=== PATIENT | male | born 1955 | race Caucasian/White ===

== ENCOUNTER → 2016-06-10 | Outpatient (CLI) | payer BC ==
[2016-05-27 11:04] VITALS: BP 119/66
[~2016-06-10] MED LIST: AMOX1TAB11 PO; AMOX500C PO; ASPI81TA2 PO; ATOR20TA58 PO; FERR-26 PO; GEMF600T3 PO; HYDR-2666 PO; METF10002 PO; MULT-245 PO; NAPR220C PO; PIOG15TA2 PO
== END | disposition home or self-care (01) ==
LOC: PMGWOUND 10:59
PROVIDERS: ATTEND Preventive Medicine Undersea and Hyperbaric Medicine
DX: E11.622 Type 2 diabetes mellitus with other skin ulcer (principal); L97.211 Non-pressure chronic ulcer of right calf limited to breakdown of skin; E78.00 Pure hypercholesterolemia, unspecified; B95.62 Methicillin resistant Staphylococcus aureus infection as the cause of diseases classified elsewhere
CPT/HCPCS: 97597

== ENCOUNTER → 2016-06-17 | Outpatient (CLI) | payer BC ==
[2016-05-27 11:04] VITALS: BP 119/66
== END | disposition home or self-care (01) ==
LOC: PMGWOUND 11:12
PROVIDERS: ATTEND Preventive Medicine Undersea and Hyperbaric Medicine
DX: I70.238 Atherosclerosis of native arteries of right leg with ulceration of other part of lower leg (principal); E11.622 Type 2 diabetes mellitus with other skin ulcer; L97.211 Non-pressure chronic ulcer of right calf limited to breakdown of skin; E11.36 Type 2 diabetes mellitus with diabetic cataract; E78.00 Pure hypercholesterolemia, unspecified; Z86.14 Personal history of Methicillin resistant Staphylococcus aureus infection
CPT/HCPCS: 11042

== ENCOUNTER → 2016-06-24 | Outpatient (CLI) | payer BC ==
[2016-05-27 11:04] VITALS: BP 119/66
== END | disposition home or self-care (01) ==
LOC: PMGWOUND 11:00
PROVIDERS: ATTEND Preventive Medicine Undersea and Hyperbaric Medicine
DX: E11.622 Type 2 diabetes mellitus with other skin ulcer (principal); L97.811 Non-pressure chronic ulcer of other part of right lower leg limited to breakdown of skin; L97.211 Non-pressure chronic ulcer of right calf limited to breakdown of skin; E78.00 Pure hypercholesterolemia, unspecified; J45.909 Unspecified asthma, uncomplicated; E11.51 Type 2 diabetes mellitus with diabetic peripheral angiopathy without gangrene; Z86.14 Personal history of Methicillin resistant Staphylococcus aureus infection
CPT/HCPCS: 97597

== ENCOUNTER → 2016-07-01 | Outpatient (CLI) | payer BC ==
[2016-05-27 11:04] VITALS: BP 119/66
== END | disposition home or self-care (01) ==
LOC: PMGWOUND 10:57
PROVIDERS: ATTEND Preventive Medicine Undersea and Hyperbaric Medicine
DX: I70.238 Atherosclerosis of native arteries of right leg with ulceration of other part of lower leg (principal); E11.622 Type 2 diabetes mellitus with other skin ulcer; L97.212 Non-pressure chronic ulcer of right calf with fat layer exposed; E11.36 Type 2 diabetes mellitus with diabetic cataract; E78.00 Pure hypercholesterolemia, unspecified; Z86.14 Personal history of Methicillin resistant Staphylococcus aureus infection; Z72.89 Other problems related to lifestyle
CPT/HCPCS: 97597

== ENCOUNTER → 2016-07-08 | Outpatient (CLI) | payer BC ==
[2016-05-27 11:04] VITALS: BP 119/66
== END | disposition home or self-care (01) ==
LOC: PMGWOUND 09:57
PROVIDERS: ATTEND Preventive Medicine Undersea and Hyperbaric Medicine
DX: I70.238 Atherosclerosis of native arteries of right leg with ulceration of other part of lower leg (principal); E11.622 Type 2 diabetes mellitus with other skin ulcer; L97.811 Non-pressure chronic ulcer of other part of right lower leg limited to breakdown of skin; E11.36 Type 2 diabetes mellitus with diabetic cataract; E78.00 Pure hypercholesterolemia, unspecified; Z86.14 Personal history of Methicillin resistant Staphylococcus aureus infection; Z72.89 Other problems related to lifestyle
CPT/HCPCS: 97597

== ENCOUNTER → 2016-07-15 | Outpatient (CLI) | payer BC ==
[2016-05-27 11:04] VITALS: BP 119/66
== END | disposition home or self-care (01) ==
LOC: PMGWOUND 09:54
PROVIDERS: ATTEND Preventive Medicine Undersea and Hyperbaric Medicine
DX: I70.232 Atherosclerosis of native arteries of right leg with ulceration of calf (principal); E11.622 Type 2 diabetes mellitus with other skin ulcer; L97.212 Non-pressure chronic ulcer of right calf with fat layer exposed; E11.36 Type 2 diabetes mellitus with diabetic cataract; E78.00 Pure hypercholesterolemia, unspecified; Z86.73 Personal history of transient ischemic attack (TIA), and cerebral infarction without residual deficits; Z72.89 Other problems related to lifestyle
CPT/HCPCS: 97597

== ENCOUNTER → 2016-07-22 | Outpatient (CLI) | payer BC ==
[2016-05-27 11:04] VITALS: BP 119/66
[~2016-07-22] MED LIST changes: +METF-620 PO; -METF10002 PO
== END | disposition home or self-care (01) ==
LOC: PMGWOUND 10:22
PROVIDERS: ATTEND Preventive Medicine Undersea and Hyperbaric Medicine
DX: I70.238 Atherosclerosis of native arteries of right leg with ulceration of other part of lower leg (principal); E11.622 Type 2 diabetes mellitus with other skin ulcer; L97.811 Non-pressure chronic ulcer of other part of right lower leg limited to breakdown of skin; E11.36 Type 2 diabetes mellitus with diabetic cataract; E78.00 Pure hypercholesterolemia, unspecified; J45.909 Unspecified asthma, uncomplicated; Z86.73 Personal history of transient ischemic attack (TIA), and cerebral infarction without residual deficits; Z86.14 Personal history of Methicillin resistant Staphylococcus aureus infection; Z72.89 Other problems related to lifestyle
CPT/HCPCS: 97597

== ENCOUNTER → 2016-07-29 | Outpatient (CLI) | payer BC ==
[2016-05-27 11:04] VITALS: BP 119/66
== END | disposition home or self-care (01) ==
LOC: PMGWOUND 10:22
PROVIDERS: ATTEND Preventive Medicine Undersea and Hyperbaric Medicine
DX: E11.622 Type 2 diabetes mellitus with other skin ulcer (principal); L97.211 Non-pressure chronic ulcer of right calf limited to breakdown of skin; E78.00 Pure hypercholesterolemia, unspecified; J45.909 Unspecified asthma, uncomplicated; Z86.14 Personal history of Methicillin resistant Staphylococcus aureus infection; Z72.89 Other problems related to lifestyle; Z86.73 Personal history of transient ischemic attack (TIA), and cerebral infarction without residual deficits
CPT/HCPCS: 97597

== ENCOUNTER → 2016-08-05 | Outpatient (CLI) | payer BC ==
[2016-05-27 11:04] VITALS: BP 119/66
== END | disposition home or self-care (01) ==
LOC: PMGWOUND 10:27
PROVIDERS: ATTEND Preventive Medicine Undersea and Hyperbaric Medicine
DX: I70.238 Atherosclerosis of native arteries of right leg with ulceration of other part of lower leg (principal); E11.622 Type 2 diabetes mellitus with other skin ulcer; L97.811 Non-pressure chronic ulcer of other part of right lower leg limited to breakdown of skin; L97.211 Non-pressure chronic ulcer of right calf limited to breakdown of skin; E11.36 Type 2 diabetes mellitus with diabetic cataract; E78.00 Pure hypercholesterolemia, unspecified; Z86.14 Personal history of Methicillin resistant Staphylococcus aureus infection; Z72.89 Other problems related to lifestyle
CPT/HCPCS: 99214

== ENCOUNTER → 2016-08-12 | Outpatient (CLI) | payer BC ==
[2016-05-27 11:04] VITALS: BP 119/66
== END | disposition home or self-care (01) ==
LOC: PMGWOUND 09:59
PROVIDERS: ATTEND Preventive Medicine Undersea and Hyperbaric Medicine
DX: I70.232 Atherosclerosis of native arteries of right leg with ulceration of calf (principal); E11.622 Type 2 diabetes mellitus with other skin ulcer; L97.212 Non-pressure chronic ulcer of right calf with fat layer exposed; E11.36 Type 2 diabetes mellitus with diabetic cataract; E78.00 Pure hypercholesterolemia, unspecified; J45.909 Unspecified asthma, uncomplicated; Z72.89 Other problems related to lifestyle; Z86.14 Personal history of Methicillin resistant Staphylococcus aureus infection
CPT/HCPCS: 97597

== ENCOUNTER → 2016-08-19 | Outpatient (CLI) | payer BC ==
[2016-05-27 11:04] VITALS: BP 119/66
== END | disposition home or self-care (01) ==
LOC: PMGWOUND 10:24
PROVIDERS: ATTEND Preventive Medicine Undersea and Hyperbaric Medicine
DX: I70.238 Atherosclerosis of native arteries of right leg with ulceration of other part of lower leg (principal); E11.622 Type 2 diabetes mellitus with other skin ulcer; L97.212 Non-pressure chronic ulcer of right calf with fat layer exposed; E78.00 Pure hypercholesterolemia, unspecified; J45.909 Unspecified asthma, uncomplicated; E11.36 Type 2 diabetes mellitus with diabetic cataract; E11.51 Type 2 diabetes mellitus with diabetic peripheral angiopathy without gangrene; Z86.73 Personal history of transient ischemic attack (TIA), and cerebral infarction without residual deficits; Z86.14 Personal history of Methicillin resistant Staphylococcus aureus infection; Z72.89 Other problems related to lifestyle
CPT/HCPCS: 97597

== ENCOUNTER → 2016-08-26 | Outpatient (CLI) | payer BC ==
[2016-05-27 11:04] VITALS: BP 119/66
== END | disposition home or self-care (01) ==
LOC: PMGWOUND 09:49
PROVIDERS: ATTEND Preventive Medicine Undersea and Hyperbaric Medicine
DX: I70.232 Atherosclerosis of native arteries of right leg with ulceration of calf (principal); E11.622 Type 2 diabetes mellitus with other skin ulcer; L97.212 Non-pressure chronic ulcer of right calf with fat layer exposed; E78.00 Pure hypercholesterolemia, unspecified; E11.36 Type 2 diabetes mellitus with diabetic cataract; E11.51 Type 2 diabetes mellitus with diabetic peripheral angiopathy without gangrene; J45.909 Unspecified asthma, uncomplicated; Z72.89 Other problems related to lifestyle; Z86.14 Personal history of Methicillin resistant Staphylococcus aureus infection; Z86.73 Personal history of transient ischemic attack (TIA), and cerebral infarction without residual deficits
CPT/HCPCS: 11042

== ENCOUNTER → 2016-09-02 | Outpatient (CLI) | payer BC ==
[2016-05-27 11:04] VITALS: BP 119/66
[~2016-09-02] MED LIST changes: +ASPI-630 PO; -ASPI81TA2 PO; -HYDR-2666 PO; +HYDR-2758 PO
== END | disposition home or self-care (01) ==
LOC: PMGWOUND 09:58
PROVIDERS: ATTEND Preventive Medicine Undersea and Hyperbaric Medicine
DX: I70.238 Atherosclerosis of native arteries of right leg with ulceration of other part of lower leg (principal); E11.622 Type 2 diabetes mellitus with other skin ulcer; L97.212 Non-pressure chronic ulcer of right calf with fat layer exposed; E78.00 Pure hypercholesterolemia, unspecified; E11.36 Type 2 diabetes mellitus with diabetic cataract; E11.51 Type 2 diabetes mellitus with diabetic peripheral angiopathy without gangrene; J45.909 Unspecified asthma, uncomplicated; Z72.89 Other problems related to lifestyle; Z86.14 Personal history of Methicillin resistant Staphylococcus aureus infection; Z86.73 Personal history of transient ischemic attack (TIA), and cerebral infarction without residual deficits
CPT/HCPCS: 99214

== ENCOUNTER → 2016-09-09 | Outpatient (CLI) | payer BC ==
[2016-05-27 11:04] VITALS: BP 119/66
== END | disposition home or self-care (01) ==
LOC: PMGWOUND 10:24
PROVIDERS: ATTEND Preventive Medicine Undersea and Hyperbaric Medicine
DX: I70.238 Atherosclerosis of native arteries of right leg with ulceration of other part of lower leg (principal); E11.622 Type 2 diabetes mellitus with other skin ulcer; L97.811 Non-pressure chronic ulcer of other part of right lower leg limited to breakdown of skin; E78.00 Pure hypercholesterolemia, unspecified; E11.36 Type 2 diabetes mellitus with diabetic cataract; E11.51 Type 2 diabetes mellitus with diabetic peripheral angiopathy without gangrene; J45.909 Unspecified asthma, uncomplicated; Z86.14 Personal history of Methicillin resistant Staphylococcus aureus infection; Z86.73 Personal history of transient ischemic attack (TIA), and cerebral infarction without residual deficits; Z72.89 Other problems related to lifestyle
CPT/HCPCS: 99214

== ENCOUNTER → 2016-09-16 | Outpatient (CLI) | payer BC ==
[2016-05-27 11:04] VITALS: BP 119/66
== END | disposition home or self-care (01) ==
LOC: PMGWOUND 10:09
PROVIDERS: ATTEND Preventive Medicine Undersea and Hyperbaric Medicine
DX: I70.238 Atherosclerosis of native arteries of right leg with ulceration of other part of lower leg (principal); E11.622 Type 2 diabetes mellitus with other skin ulcer; L97.212 Non-pressure chronic ulcer of right calf with fat layer exposed; E78.00 Pure hypercholesterolemia, unspecified; E11.36 Type 2 diabetes mellitus with diabetic cataract; E11.51 Type 2 diabetes mellitus with diabetic peripheral angiopathy without gangrene; J45.909 Unspecified asthma, uncomplicated; Z86.14 Personal history of Methicillin resistant Staphylococcus aureus infection; Z86.73 Personal history of transient ischemic attack (TIA), and cerebral infarction without residual deficits; Z98.49 Cataract extraction status, unspecified eye; Z72.89 Other problems related to lifestyle
CPT/HCPCS: 15271; Q4101

== ENCOUNTER → 2016-09-23 | Outpatient (CLI) | payer MEDICARE, BC ==
[2016-05-27 11:04] VITALS: BP 119/66
== END | disposition home or self-care (01) ==
LOC: PMGWOUND 10:29
PROVIDERS: ATTEND Preventive Medicine Undersea and Hyperbaric Medicine
DX: I70.238 Atherosclerosis of native arteries of right leg with ulceration of other part of lower leg (principal); I87.311 Chronic venous hypertension (idiopathic) with ulcer of right lower extremity; E11.622 Type 2 diabetes mellitus with other skin ulcer; L97.212 Non-pressure chronic ulcer of right calf with fat layer exposed; E11.36 Type 2 diabetes mellitus with diabetic cataract; E11.51 Type 2 diabetes mellitus with diabetic peripheral angiopathy without gangrene; J45.909 Unspecified asthma, uncomplicated; Z86.14 Personal history of Methicillin resistant Staphylococcus aureus infection; Z86.73 Personal history of transient ischemic attack (TIA), and cerebral infarction without residual deficits; Z72.89 Other problems related to lifestyle
CPT/HCPCS: 15271; Q4101

== ENCOUNTER → 2016-09-30 | Outpatient (CLI) | payer MEDICARE, BC ==
[2016-05-27 11:04] VITALS: BP 119/66
== END | disposition home or self-care (01) ==
LOC: PMGWOUND 10:25
PROVIDERS: ATTEND Preventive Medicine Undersea and Hyperbaric Medicine
DX: I70.238 Atherosclerosis of native arteries of right leg with ulceration of other part of lower leg (principal); E11.622 Type 2 diabetes mellitus with other skin ulcer; I87.311 Chronic venous hypertension (idiopathic) with ulcer of right lower extremity; L97.212 Non-pressure chronic ulcer of right calf with fat layer exposed; E11.36 Type 2 diabetes mellitus with diabetic cataract; E11.51 Type 2 diabetes mellitus with diabetic peripheral angiopathy without gangrene; J45.909 Unspecified asthma, uncomplicated; E78.00 Pure hypercholesterolemia, unspecified; I25.10 Atherosclerotic heart disease of native coronary artery without angina pectoris; Z72.89 Other problems related to lifestyle; Z86.14 Personal history of Methicillin resistant Staphylococcus aureus infection; Z86.73 Personal history of transient ischemic attack (TIA), and cerebral infarction without residual deficits
CPT/HCPCS: 97597

== ENCOUNTER → 2016-10-07 | Outpatient (CLI) | payer MEDICARE, BC ==
[2016-05-27 11:04] VITALS: BP 119/66
== END | disposition home or self-care (01) ==
LOC: PMGWOUND 10:20
PROVIDERS: ATTEND Preventive Medicine Undersea and Hyperbaric Medicine
DX: I70.238 Atherosclerosis of native arteries of right leg with ulceration of other part of lower leg (principal); E11.622 Type 2 diabetes mellitus with other skin ulcer; I87.311 Chronic venous hypertension (idiopathic) with ulcer of right lower extremity; L97.212 Non-pressure chronic ulcer of right calf with fat layer exposed; E78.00 Pure hypercholesterolemia, unspecified; E11.36 Type 2 diabetes mellitus with diabetic cataract; E11.51 Type 2 diabetes mellitus with diabetic peripheral angiopathy without gangrene; J45.909 Unspecified asthma, uncomplicated; Z86.73 Personal history of transient ischemic attack (TIA), and cerebral infarction without residual deficits; Z86.14 Personal history of Methicillin resistant Staphylococcus aureus infection; Z72.89 Other problems related to lifestyle
CPT/HCPCS: 15271; Q4101

== ENCOUNTER → 2016-10-14 | Outpatient (CLI) | payer MEDICARE, BC ==
[2016-05-27 11:04] VITALS: BP 119/66
== END | disposition home or self-care (01) ==
LOC: PMGWOUND 10:25
PROVIDERS: ATTEND Preventive Medicine Undersea and Hyperbaric Medicine
DX: E11.622 Type 2 diabetes mellitus with other skin ulcer (principal); I87.311 Chronic venous hypertension (idiopathic) with ulcer of right lower extremity; L97.212 Non-pressure chronic ulcer of right calf with fat layer exposed; E11.36 Type 2 diabetes mellitus with diabetic cataract; E78.00 Pure hypercholesterolemia, unspecified; J45.909 Unspecified asthma, uncomplicated; Z72.89 Other problems related to lifestyle; E11.51 Type 2 diabetes mellitus with diabetic peripheral angiopathy without gangrene; Z86.14 Personal history of Methicillin resistant Staphylococcus aureus infection
CPT/HCPCS: 15271; 97597; Q4101

== ENCOUNTER → 2016-10-21 | Outpatient (CLI) | payer MEDICARE, BC ==
[2016-05-27 11:04] VITALS: BP 119/66
== END | disposition home or self-care (01) ==
LOC: PMGWOUND 10:21
PROVIDERS: ATTEND Preventive Medicine Undersea and Hyperbaric Medicine
DX: I87.311 Chronic venous hypertension (idiopathic) with ulcer of right lower extremity (principal); E11.622 Type 2 diabetes mellitus with other skin ulcer; L97.212 Non-pressure chronic ulcer of right calf with fat layer exposed; L97.811 Non-pressure chronic ulcer of other part of right lower leg limited to breakdown of skin; E78.00 Pure hypercholesterolemia, unspecified; E11.36 Type 2 diabetes mellitus with diabetic cataract; E11.51 Type 2 diabetes mellitus with diabetic peripheral angiopathy without gangrene; I25.10 Atherosclerotic heart disease of native coronary artery without angina pectoris; J45.909 Unspecified asthma, uncomplicated; Z86.14 Personal history of Methicillin resistant Staphylococcus aureus infection; Z86.73 Personal history of transient ischemic attack (TIA), and cerebral infarction without residual deficits; Z72.89 Other problems related to lifestyle
CPT/HCPCS: 99214

== ENCOUNTER → 2016-10-28 | Outpatient (CLI) | payer MEDICARE, BC ==
[2016-05-27 11:04] VITALS: BP 119/66
== END | disposition home or self-care (01) ==
LOC: PMGWOUND 10:39
PROVIDERS: ATTEND Preventive Medicine Undersea and Hyperbaric Medicine
DX: I70.238 Atherosclerosis of native arteries of right leg with ulceration of other part of lower leg (principal); L97.212 Non-pressure chronic ulcer of right calf with fat layer exposed; E11.622 Type 2 diabetes mellitus with other skin ulcer; S90.811D Abrasion, right foot, subsequent encounter; I25.10 Atherosclerotic heart disease of native coronary artery without angina pectoris; E78.00 Pure hypercholesterolemia, unspecified; E11.36 Type 2 diabetes mellitus with diabetic cataract; E11.51 Type 2 diabetes mellitus with diabetic peripheral angiopathy without gangrene; J45.909 Unspecified asthma, uncomplicated; Z86.73 Personal history of transient ischemic attack (TIA), and cerebral infarction without residual deficits; Z72.89 Other problems related to lifestyle; Z86.14 Personal history of Methicillin resistant Staphylococcus aureus infection; X58.XXXD Exposure to other specified factors, subsequent encounter
CPT/HCPCS: 99214

== ENCOUNTER → 2016-11-04 | Outpatient (CLI) | payer MEDICARE, BC ==
[2016-05-27 11:04] VITALS: BP 119/66
== END | disposition home or self-care (01) ==
LOC: PMGWOUND 10:22
PROVIDERS: ATTEND Preventive Medicine Undersea and Hyperbaric Medicine
DX: I87.311 Chronic venous hypertension (idiopathic) with ulcer of right lower extremity (principal); E11.622 Type 2 diabetes mellitus with other skin ulcer; L97.212 Non-pressure chronic ulcer of right calf with fat layer exposed; S90.811D Abrasion, right foot, subsequent encounter; E78.00 Pure hypercholesterolemia, unspecified; E11.51 Type 2 diabetes mellitus with diabetic peripheral angiopathy without gangrene; J45.909 Unspecified asthma, uncomplicated; Z72.89 Other problems related to lifestyle; Z86.14 Personal history of Methicillin resistant Staphylococcus aureus infection; X58.XXXD Exposure to other specified factors, subsequent encounter
CPT/HCPCS: 97597

== ENCOUNTER → 2016-11-11 | Outpatient (CLI) | payer MEDICARE, BC ==
[2016-05-27 11:04] VITALS: BP 119/66
== END | disposition home or self-care (01) ==
LOC: PMGWOUND 10:15
PROVIDERS: ATTEND Preventive Medicine Undersea and Hyperbaric Medicine
DX: I70.238 Atherosclerosis of native arteries of right leg with ulceration of other part of lower leg (principal); I87.311 Chronic venous hypertension (idiopathic) with ulcer of right lower extremity; E11.622 Type 2 diabetes mellitus with other skin ulcer; L97.212 Non-pressure chronic ulcer of right calf with fat layer exposed; S90.811D Abrasion, right foot, subsequent encounter; E78.00 Pure hypercholesterolemia, unspecified; E11.51 Type 2 diabetes mellitus with diabetic peripheral angiopathy without gangrene; J45.909 Unspecified asthma, uncomplicated; I25.10 Atherosclerotic heart disease of native coronary artery without angina pectoris; E11.36 Type 2 diabetes mellitus with diabetic cataract; Z72.89 Other problems related to lifestyle; Z86.73 Personal history of transient ischemic attack (TIA), and cerebral infarction without residual deficits; Z86.14 Personal history of Methicillin resistant Staphylococcus aureus infection; X58.XXXD Exposure to other specified factors, subsequent encounter
CPT/HCPCS: 97597

== ENCOUNTER → 2016-11-18 | Outpatient (CLI) | payer MEDICARE, BC ==
[2016-05-27 11:04] VITALS: BP 119/66
== END | disposition home or self-care (01) ==
LOC: PMGWOUND 10:25
PROVIDERS: ATTEND Preventive Medicine Undersea and Hyperbaric Medicine
DX: I87.311 Chronic venous hypertension (idiopathic) with ulcer of right lower extremity (principal); E11.622 Type 2 diabetes mellitus with other skin ulcer; I70.238 Atherosclerosis of native arteries of right leg with ulceration of other part of lower leg; L97.212 Non-pressure chronic ulcer of right calf with fat layer exposed; E78.00 Pure hypercholesterolemia, unspecified; E11.51 Type 2 diabetes mellitus with diabetic peripheral angiopathy without gangrene; I25.10 Atherosclerotic heart disease of native coronary artery without angina pectoris; J45.909 Unspecified asthma, uncomplicated; Z86.14 Personal history of Methicillin resistant Staphylococcus aureus infection; Z72.89 Other problems related to lifestyle; Z86.73 Personal history of transient ischemic attack (TIA), and cerebral infarction without residual deficits
CPT/HCPCS: 97597

== ENCOUNTER → 2016-11-25 | Outpatient (CLI) | payer MEDICARE, BC ==
[2016-05-27 11:04] VITALS: BP 119/66
== END | disposition home or self-care (01) ==
LOC: PMGWOUND 10:24
PROVIDERS: ATTEND Preventive Medicine Undersea and Hyperbaric Medicine
DX: I70.238 Atherosclerosis of native arteries of right leg with ulceration of other part of lower leg (principal); L97.212 Non-pressure chronic ulcer of right calf with fat layer exposed; E78.00 Pure hypercholesterolemia, unspecified; E11.36 Type 2 diabetes mellitus with diabetic cataract; J45.909 Unspecified asthma, uncomplicated; E11.51 Type 2 diabetes mellitus with diabetic peripheral angiopathy without gangrene; Z86.14 Personal history of Methicillin resistant Staphylococcus aureus infection; Z86.73 Personal history of transient ischemic attack (TIA), and cerebral infarction without residual deficits; Z72.89 Other problems related to lifestyle
CPT/HCPCS: 97597

== ENCOUNTER → 2016-12-02 | Outpatient (CLI) | payer MEDICARE, BC ==
[2016-05-27 11:04] VITALS: BP 119/66
== END | disposition home or self-care (01) ==
LOC: PMGWOUND 10:36
PROVIDERS: ATTEND Preventive Medicine Undersea and Hyperbaric Medicine
DX: I70.238 Atherosclerosis of native arteries of right leg with ulceration of other part of lower leg (principal); E11.622 Type 2 diabetes mellitus with other skin ulcer; L97.212 Non-pressure chronic ulcer of right calf with fat layer exposed; E78.00 Pure hypercholesterolemia, unspecified; E11.36 Type 2 diabetes mellitus with diabetic cataract; E11.51 Type 2 diabetes mellitus with diabetic peripheral angiopathy without gangrene; J45.909 Unspecified asthma, uncomplicated; I25.10 Atherosclerotic heart disease of native coronary artery without angina pectoris; Z86.14 Personal history of Methicillin resistant Staphylococcus aureus infection; Z86.73 Personal history of transient ischemic attack (TIA), and cerebral infarction without residual deficits; Z72.89 Other problems related to lifestyle
CPT/HCPCS: 97597

== ENCOUNTER → 2016-12-09 | Outpatient (CLI) | payer MEDICARE, BC ==
[2016-05-27 11:04] VITALS: BP 119/66
== END | disposition home or self-care (01) ==
LOC: PMGWOUND 10:25
PROVIDERS: ATTEND Preventive Medicine Undersea and Hyperbaric Medicine
DX: I70.238 Atherosclerosis of native arteries of right leg with ulceration of other part of lower leg (principal); E11.622 Type 2 diabetes mellitus with other skin ulcer; L97.212 Non-pressure chronic ulcer of right calf with fat layer exposed; E78.00 Pure hypercholesterolemia, unspecified; E11.36 Type 2 diabetes mellitus with diabetic cataract; E11.51 Type 2 diabetes mellitus with diabetic peripheral angiopathy without gangrene; J45.909 Unspecified asthma, uncomplicated; Z86.73 Personal history of transient ischemic attack (TIA), and cerebral infarction without residual deficits; Z86.14 Personal history of Methicillin resistant Staphylococcus aureus infection; Z72.89 Other problems related to lifestyle
CPT/HCPCS: 97597

== ENCOUNTER → 2016-12-16 | Outpatient (CLI) | payer MEDICARE, BC ==
[2016-05-27 11:04] VITALS: BP 119/66
== END | disposition home or self-care (01) ==
LOC: PMGWOUND 10:20
PROVIDERS: ATTEND Preventive Medicine Undersea and Hyperbaric Medicine
DX: I87.311 Chronic venous hypertension (idiopathic) with ulcer of right lower extremity (principal); E11.622 Type 2 diabetes mellitus with other skin ulcer; E11.36 Type 2 diabetes mellitus with diabetic cataract; E11.51 Type 2 diabetes mellitus with diabetic peripheral angiopathy without gangrene; I70.238 Atherosclerosis of native arteries of right leg with ulceration of other part of lower leg; L97.212 Non-pressure chronic ulcer of right calf with fat layer exposed; E78.00 Pure hypercholesterolemia, unspecified; Z86.14 Personal history of Methicillin resistant Staphylococcus aureus infection; Z72.89 Other problems related to lifestyle; Z86.73 Personal history of transient ischemic attack (TIA), and cerebral infarction without residual deficits
CPT/HCPCS: 97597

== ENCOUNTER → 2016-12-23 | Outpatient (CLI) | payer MEDICARE, BC ==
[2016-05-27 11:04] VITALS: BP 119/66
== END | disposition home or self-care (01) ==
LOC: PMGWOUND 10:25
PROVIDERS: ATTEND Preventive Medicine Undersea and Hyperbaric Medicine
DX: I70.238 Atherosclerosis of native arteries of right leg with ulceration of other part of lower leg (principal); E11.622 Type 2 diabetes mellitus with other skin ulcer; L97.212 Non-pressure chronic ulcer of right calf with fat layer exposed; E78.00 Pure hypercholesterolemia, unspecified; E11.36 Type 2 diabetes mellitus with diabetic cataract; E11.51 Type 2 diabetes mellitus with diabetic peripheral angiopathy without gangrene; J45.909 Unspecified asthma, uncomplicated; Z86.73 Personal history of transient ischemic attack (TIA), and cerebral infarction without residual deficits; Z86.14 Personal history of Methicillin resistant Staphylococcus aureus infection; Z72.89 Other problems related to lifestyle
CPT/HCPCS: 99214

== ENCOUNTER → 2016-12-30 | Outpatient (CLI) | payer MEDICARE, BC ==
[2016-05-27 11:04] VITALS: BP 119/66
== END | disposition home or self-care (01) ==
LOC: PMGWOUND 10:23
PROVIDERS: ATTEND Preventive Medicine Undersea and Hyperbaric Medicine
DX: E11.622 Type 2 diabetes mellitus with other skin ulcer (principal); I87.311 Chronic venous hypertension (idiopathic) with ulcer of right lower extremity; L97.212 Non-pressure chronic ulcer of right calf with fat layer exposed; E11.36 Type 2 diabetes mellitus with diabetic cataract; E78.00 Pure hypercholesterolemia, unspecified; E11.51 Type 2 diabetes mellitus with diabetic peripheral angiopathy without gangrene; J45.909 Unspecified asthma, uncomplicated; I25.10 Atherosclerotic heart disease of native coronary artery without angina pectoris; Z72.89 Other problems related to lifestyle
CPT/HCPCS: 97597

== ENCOUNTER → 2017-01-06 | Outpatient (CLI) | payer MEDICARE, BC ==
[2016-05-27 11:04] VITALS: BP 119/66
== END | disposition home or self-care (01) ==
LOC: PMGWOUND 10:24
PROVIDERS: ATTEND Emergency Medicine Undersea and Hyperbaric Medicine
DX: I70.238 Atherosclerosis of native arteries of right leg with ulceration of other part of lower leg (principal); I87.311 Chronic venous hypertension (idiopathic) with ulcer of right lower extremity; E11.622 Type 2 diabetes mellitus with other skin ulcer; L97.212 Non-pressure chronic ulcer of right calf with fat layer exposed; E78.00 Pure hypercholesterolemia, unspecified; E11.36 Type 2 diabetes mellitus with diabetic cataract; E11.51 Type 2 diabetes mellitus with diabetic peripheral angiopathy without gangrene; J45.909 Unspecified asthma, uncomplicated; Z86.73 Personal history of transient ischemic attack (TIA), and cerebral infarction without residual deficits; Z72.89 Other problems related to lifestyle
CPT/HCPCS: 99213

== ENCOUNTER 2018-07-12 15:03 | Inpatient (IN) | payer MEDICARE, BC ==
[~2018-07-12] VITALS: Ht 180.3 cm; Wt 83.9 kg
[~2018-07-12 15:03] MED LIST changes: -FERR-26 PO; +FERR325T14 PO; -GEMF600T3 PO; +GEMF600T8 PO; -HYDR-2758 PO; +HYDR-2761 PO; -METF-620 PO; +METF10007 PO; -NAPR220C PO; +NAPR220C62 PO; -PIOG15TA2 PO; +PIOG15TA63 PO
[2018-07-12] MEDS ORDERED: VANCOMYCIN PER PHARMACY MC STA (16:32)
[2018-07-12 16:45] LABS: BASO # 0.1 x10^3/uL (0.0-0.2); BASO % 1 % (0-3); EOS % 0 % (0-3); HEMATOCRIT 31.2 % (39.0-53.0); HEMOGLOBIN 10.3 g/dL (13.0-17.5); LYMPH # 1.4 x10^3/uL (1.0-4.8); LYMPH % 9 % (24-48); MEAN CORPUSCULAR HEMOGLOBIN 29 pg (25-35); MEAN CORPUSCULAR HGB CONC 33 g/dL (31-37); MEAN CORPUSCULAR VOLUME 88 fL (79-100); MONO # 1.1 x10^3/uL (0.0-1.1); MONO % 8 % (0-9); NEUT # 11.9 x10^3uL (1.8-7.7); NEUT % 82 % (31-73); PLATELET COUNT 459 x10^3/uL (140-400); RED BLOOD COUNT 3.52 x10^6/uL (4.30-5.70); RED CELL DISTRIBUTION WIDTH 13.4 % (11.5-14.5); WHITE BLOOD COUNT 14.5 x10^3/uL (4.0-11.0)
[2018-07-12] MEDS ORDERED: PIPERACILLIN/TAZOBACTAM 3.375 GM in IV NORMAL SALINE 50ML 50 ML IV ONE (16:45)
[2018-07-12] MEDS ORDERED: VANCOMYCIN 2 GM in IV NORMAL SALINE 500ML BAG 500 ML IV ONE (16:45)
[2018-07-12 16:52] LABS: CALCIUM 9.5 mg/dL (8.5-10.1); GFR 75.5; POTASSIUM 3.7 mmol/L (3.5-5.1)
[2018-07-12 16:58] LABS: ALBUMIN 3.2 g/dL (3.4-5.0); ALBUMIN/GLOBULIN RATIO 0.6 (1.0-1.7); TOTAL BILIRUBIN 0.4 mg/dL (0.2-1.0); TOTAL PROTEIN 8.6 g/dL (6.4-8.2)
--- NOTE | 2018-07-12 17:10 | RAD ---
FOOT RIGHT 3V Clinical Indication: ulceration on planter surface of right foot. foot is swollen red, hot to touch and seeping fluid. Comparison: None. Findings: Moderate joint space narrowing first MTP. No acute fracture or dislocation. The mineralization is normal. There is soft tissue ulceration along the plantar surface of the foot at the level of the first metatarsal head. No obvious bony erosion of the first metatarsal head. The medial sesamoid is not definitely seen and could be eroded. IMPRESSION: 1. Soft tissue ulcer along the plantar surface of the first metatarsal head. 2. Medial sesamoid is not definitely seen and could be eroded. 3. Suggest MRI for further evaluation. Electronically signed by: Aime Walker MD (07/12/2018 5:07 PM) [id number]
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
[2018-07-12] MEDS ORDERED: IV NORMAL SALINE 1000ML BAG 1,000 ML IV ONE (17:15)
[2018-07-12 19:00] VITALS: BP 123/65
[2018-07-12] MEDS ORDERED: MULT1CAP12 PO (19:56)
[2018-07-12] MEDS ORDERED: DEXTROSE 50% 25 GM / 50ML DISP.SYRIN. IV PRN (20:15)
[2018-07-12] MEDS ORDERED: PIP/TAZO PER PHARMACY MC PRN (20:15)
[2018-07-12] MEDS: GEMFIBROZIL 600 MG TABLET. PO SCH (20:25)
[2018-07-12] MEDS: ATORVASTATIN CALCIUM 20 MG TABLET PO SCH (20:25)
[2018-07-12] MEDS: INSULIN LISPRO 300 UNITS/3 ML INSULN.PEN. SQ SCH (21:00)
[2018-07-12 23:00] VITALS: BP 98/46
[2018-07-12] MEDS: HYDROcodone/APAP 5/325MG 1 TAB TABLET PO PRN (23:18)
[2018-07-13] MEDS: PIPERACILLIN/TAZOBACTAM 3.375 GM in IV NORMAL SALINE 50ML 50 ML IV SCH ×5 (00:04→20:25)
[2018-07-13 03:00] VITALS: BP 111/64
[2018-07-13 07:00] VITALS: BP 100/61
[2018-07-13] MEDS: INSULIN LISPRO 300 UNITS/3 ML INSULN.PEN. SQ SCH ×4 (07:30→20:22)
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
[2018-07-13 08:38] LABS: BASO # 0.1 x10^3/uL (0.0-0.2); BASO % 1 % (0-3); EOS # 0.2 x10^3/uL (0.0-0.7); EOS % 2 % (0-3); HEMATOCRIT 28.1 % (39.0-53.0); HEMOGLOBIN 9.7 g/dL (13.0-17.5); LYMPH # 1.8 x10^3/uL (1.0-4.8); LYMPH % 17 % (24-48); MEAN CORPUSCULAR HEMOGLOBIN 31 pg (25-35); MEAN CORPUSCULAR HGB CONC 35 g/dL (31-37); MEAN CORPUSCULAR VOLUME 88 fL (79-100); MONO % 10 % (0-9); NEUT # 7.2 x10^3uL (1.8-7.7); NEUT % 71 % (31-73); PLATELET COUNT 349 x10^3/uL (140-400); RED BLOOD COUNT 3.19 x10^6/uL (4.30-5.70); RED CELL DISTRIBUTION WIDTH 13.3 % (11.5-14.5); WHITE BLOOD COUNT 10.2 x10^3/uL (4.0-11.0)
[2018-07-13] MEDS: GEMFIBROZIL 600 MG TABLET. PO SCH ×2 (09:57→20:25)
[2018-07-13] MEDS: metFORMIN 500 MG TABLET PO SCH ×2 (09:57→17:33)
[2018-07-13] MEDS: PIOGLITAZONE 15 MG TABLET. PO SCH (09:57)
[2018-07-13] MEDS: FERROUS SULFATE 325 MG TABLET. PO SCH (09:58)
[2018-07-13] MEDS: MULTIVITAMIN with MINERAL TABLET. PO SCH (09:58)
[2018-07-13] MEDS: ASPIRIN CHEWABLE 81 MG TABLET. PO SCH (09:58)
[2018-07-13] MEDS: HYDROcodone/APAP 5/325MG 1 TAB TABLET PO PRN (10:07)
--- NOTE | 2018-07-13 10:18 | NUR ---
IP: Pt has an old hx of + mrsa in breast wound in 2008. Current screen and wound cultures are pending. Pt to be in contact precautions until results verified.
[2018-07-13 10:42] VITALS: BP 125/64
--- NOTE | 2018-07-13 12:02 | RAD ---
Right lower extremity arterial duplex ultrasound study without comparison for right leg diabetic foot ulcer. TECHNIQUE AND FINDINGS: Real-time grayscale and color and spectral Doppler evaluation of the arteries of right lower extremity is performed. The common femoral, proximal and mid superficial femoral, and deep femoral arteries demonstrate triphasic flow with only mild multifocal atherosclerosis and no hemodynamically significant stenoses. At the level of the distal SFA, there is abrupt comparison to monophasic flow which persists throughout the remainder of the runoff. There are areas of elevated velocity within the distal SFA and popliteal artery, though these do not reach threshold criteria for hemodynamically significant stenosis. The posterior tibial artery, peroneal artery, anterior tibial artery, and dorsalis pedis arteries all demonstrate monophasic flow with no focal velocity elevations. There is markedly reduced velocity within the anterior tibial artery. IMPRESSION: 1. Transition to monophasic flow at the distal SFA, and involving the runoff vessels suggesting one or more areas of hemodynamically significant stenosis below the distal SFA on the right. Further evaluation with direct angiography is recommended. Findings were discussed with Dr. Houston immediately upon interpretation of the examination. Electronically signed by: Toby Hodgson MD (07/13/2018 12:00 PM) [id number]
[2018-07-13 15:00] VITALS: BP 113/66
[2018-07-13] MEDS: VANCOMYCIN PER PHARMACY MC PRN (15:05)
[2018-07-13] MEDS ORDERED: GADOBUTROL 7.5 MMOL/7.5 ML VIAL IV ONE (15:30)
--- NOTE | 2018-07-13 15:30 | NUR ---
Wound Care Pt seen for wound care consultation, [facility] R leg wound which was being treated for well over a year in [id number] in the wound clinic. Pt's R foot wound assessed with Dr. Hernandez at bedside. R plantar foot ulcer appears deep, with odorous, purulent drainage pouring out when pressure is applied to dorsal aspect of foot. Able to probe to bone with cotton applicator, reddish purple petechiae and edema present over majority of forefoot, pedal pulse is palpable. Wound cleaned with saline, culture obtained from wound, then packed with Aquacel AG and covered with ABD and kerlix. Pt being transferred to MRI at this time, no other wounds noted on skin inspection. Will f/u with pt after Vascular surgery sees pt.
[2018-07-13] MEDS: VANCOMYCIN 1.25 GM in IV NORMAL SALINE 250ML 250 ML IV SCH (16:13)
[2018-07-13] MEDS ORDERED: VANCOMYCIN 1 GM in IV NORMAL SALINE 250ML 250 ML IV STA (17:09)
[2018-07-13] MEDS ORDERED: PIPERACILLIN/TAZOBACTAM 3.375 GM in IV NORMAL SALINE 50ML 50 ML IV STA (17:09)
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
--- NOTE | 2018-07-13 17:23 | PDOC ---
Provider Note Provider Note Vascular Surgery Consult dictated 62 year old male with a severe right foot diabetic infection admitted to the hospital yesterday. Vascular surgery consulted this afternoon to evaluate his foot. His right foot has an open wound on the plantar surface of the foot over the first metatarsal head region with necrotic tissue, draining purulent fluid and associated cellulitis of the foot. He has PVD by duplex however has a palpable PT pulse in the foot. Will proceed with surgery on his right foot with debridement and possible open 1st toe/metatarsal head amputation tomorrow. If signs of poor circulation may consider an angiogram during hospitalization. On IV antibiotics and ID consulted. ESTEFANY HOPPER MD Jul 13, 2018 17:23
[2018-07-13] MEDS ORDERED: IV NORMAL SALINE 1000ML BAG 1,000 ML IV SCH (18:00)
[2018-07-13 18:58] VITALS: BP 115/60
--- NOTE | 2018-07-13 19:31 | NUR ---
Medication administration: Vancomycin started late d/t loss of IV access, zosyn dose (1800) delayed.
--- NOTE | 2018-07-13 19:32 | NUR ---
Dr. Vaughn requesting that MRI be read prior to I&D procedure 07/14 at 0730. Notified Jovanna SUE nursing customer solutions supervisor, who discovered that radiology's computers are down and there are not any radiologists present to interpret films at this time.
[2018-07-13] MEDS: ATORVASTATIN CALCIUM 20 MG TABLET PO SCH (20:25)
[2018-07-13 23:00] VITALS: BP 113/59
[2018-07-13 23:08] LABS: HEMOGLOBIN A1C 7.1 % (4.8-5.6)
--- NOTE | 2018-07-13 23:29 | RAD ---
MRI of the right foot with and without contrast HISTORY: Osteomyelitis with a nonhealing ulcer on the plantar surface. Multiple sagittal imaging reveals performed before and after the administration of 9 mm IV gadolinium contrast. FINDINGS: There is marked bony edema throughout the first metatarsal and the proximal phalanx of the great toe. This has high signal on STIR and intermediate to low signal on T1 and significant enhancement. There is a peripherally enhancing fluid collection in and around the first metatarsal phalangeal joint and over the dorsal surface of the joint extending to the skin. The remaining visualized osseous structures have normal marrow signal. There is diffuse soft tissue edema and enhancement. There is thickening of the flexor tendon of the great toe. IMPRESSION: 1. Septic joint involving the first metatarsal phalangeal joint. 2. Osteomyelitis throughout the first metatarsal and the proximal phalanx of the great toe. 3. Fluid collection extending the skin with surrounding enhancement is consistent with a 13 mm x 12 mm abscess. 4. Tenovitis involving the first flexor tendon. 5. Diffuse soft tissue edema likely cellulitis. Electronically signed by: Amrik Valdez III, MD (07/13/2018 11:26 PM) [facility]
[2018-07-14] VITALS (9 sets, daily range): BP systolic 105–139; BP diastolic 53–72
[2018-07-14] MEDS: PIPERACILLIN/TAZOBACTAM 3.375 GM in IV NORMAL SALINE 50ML 50 ML IV SCH ×4 (00:53→19:06)
[2018-07-14] MEDS: VANCOMYCIN 1.25 GM in IV NORMAL SALINE 250ML 250 ML IV SCH ×2 (03:55→16:56)
[2018-07-14 04:21] LABS: BASO # 0.1 x10^3/uL (0.0-0.2); BASO % 1 % (0-3); EOS # 0.3 x10^3/uL (0.0-0.7); EOS % 3 % (0-3); HEMATOCRIT 28.5 % (39.0-53.0); HEMOGLOBIN 9.8 g/dL (13.0-17.5); LYMPH % 20 % (24-48); MEAN CORPUSCULAR HEMOGLOBIN 30 pg (25-35); MEAN CORPUSCULAR HGB CONC 35 g/dL (31-37); MEAN CORPUSCULAR VOLUME 87 fL (79-100); MONO % 10 % (0-9); NEUT # 6.6 x10^3uL (1.8-7.7); NEUT % 67 % (31-73); PLATELET COUNT 399 x10^3/uL (140-400); RED BLOOD COUNT 3.26 x10^6/uL (4.30-5.70); RED CELL DISTRIBUTION WIDTH 13.6 % (11.5-14.5); WHITE BLOOD COUNT 9.9 x10^3/uL (4.0-11.0)
[2018-07-14 04:28] LABS: PROTHROMBIN TIME PATIENT 14.5 SEC (11.7-14.0)
[2018-07-14 04:44] LABS: CALCIUM 9.2 mg/dL (8.5-10.1); CREATININE 0.7 mg/dL (0.7-1.3); GFR 113.9; POTASSIUM 3.8 mmol/L (3.5-5.1)
[2018-07-14] MEDS ORDERED: PROCHLORPERAZINE 10 MG/2 ML VIAL. IV PRN (07:00)
[2018-07-14] MEDS ORDERED: IV RINGERS,LACTATED 1000ML 1,000 ML IV SCH (07:00)
[2018-07-14] MEDS ORDERED: fentaNYL PF VIAL 100 MCG/2 ML VIAL IV PRN ×2 (07:00)
[2018-07-14] MEDS ORDERED: HYDROmorphone 2 MG/ML VIAL IV PRN (07:00)
[2018-07-14] MEDS ORDERED: LIDOCAINE 1% PF 2 ML VIAL. ID PRN (07:00)
[2018-07-14] MEDS ORDERED: ONDANSETRON PF 4 MG/2 ML VIAL. IV PRN (07:00)
[2018-07-14] MEDS ORDERED: MORPHINE SULFATE 2 MG/ML VIAL. IV PRN (07:00)
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
[2018-07-14] MEDS ORDERED: ONDANSETRON PF 4 MG/2 ML VIAL. ONE (07:02)
[2018-07-14] MEDS ORDERED: FAMOTIDINE 20 MG/2 ML VIAL ONE (07:02)
[2018-07-14] MEDS ORDERED: PROPOFOL 20 ML IV ONE (07:02)
[2018-07-14] MEDS ORDERED: LIDOCAINE 2% PF 5 ML VIAL. ONE (07:02)
[2018-07-14] MEDS ORDERED: fentaNYL PF VIAL 100 MCG/2 ML VIAL ONE (07:03)
[2018-07-14] MEDS ORDERED: MIDAZOLAM HCL/PF 2 MG/2 ML VIAL. ONE (07:03)
[2018-07-14] MEDS ORDERED: DEXAMETHASONE SOD PHOS 4 MG/ML VIAL ONE (07:04)
[2018-07-14] MEDS: INSULIN LISPRO 300 UNITS/3 ML INSULN.PEN. SQ SCH ×4 (07:30→21:00)
[2018-07-14] MEDS ORDERED: SEVOFLURANE 31 TO 60 MINUTES. IH ONE (08:15)
--- NOTE | 2018-07-14 08:17 | PDOC4 ---
OPERATIVE NOTE: Op note dictated Dx: septic right metatarsal phalangeal joint DM with vascular disease, neurotrophic ulcer over 1st metatarsal head Op: right great toe amputation with metatarsal head Surg: Praveen HO GOT to rr in sat. cond; wound packed with saline gauze; wound vac to be placed tomorrow. Cultures sent of bone fragments and girish pus IZABELLA CHRIS II, MD Jul 14, 2018 08:17
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
--- NOTE | 2018-07-14 09:11 | NUR ---
SW following pt for anticipated dc needs. Chart reviewed. Pt lives at home alone and had procedure yesterday. No dc recommendations noted at this time. Will continue to evaluate dc needs.
[2018-07-14] MEDS: ASPIRIN CHEWABLE 81 MG TABLET. PO SCH (09:50)
[2018-07-14] MEDS: MULTIVITAMIN with MINERAL TABLET. PO SCH (09:50)
[2018-07-14] MEDS: PIOGLITAZONE 15 MG TABLET. PO SCH (09:51)
[2018-07-14] MEDS: glipiZIDE 5 MG TABLET PO SCH ×2 (09:51→16:56)
[2018-07-14] MEDS: FERROUS SULFATE 325 MG TABLET. PO SCH (09:51)
[2018-07-14] MEDS: GEMFIBROZIL 600 MG TABLET. PO SCH ×2 (09:51→21:13)
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
--- NOTE | 2018-07-14 12:13 | PDOC ---
Infectious Disease Note Vital Sign Vital Signs Vital Signs Date Time Temp Pulse Resp B/P (MAP) Pulse Ox O2 Delivery O2 Flow Rate FiO2 07/14/18 10:58 98.1 81 18 122/63 (82) 95 Room Air 98.1 07/14/18 08:17 8 Labs Lab Laboratory Tests Test 07/13/18 16:20 07/13/18 20:11 07/14/18 02:40 07/14/18 07:13 Glucose (Fingerstick) 150 mg/dL (70-99) 165 mg/dL (70-99) 137 mg/dL (70-99) White Blood Count 9.9 x10^3/uL (4.0-11.0) Red Blood Count 3.26 x10^6/uL (4.30-5.70) Hemoglobin 9.8 g/dL (13.0-17.5) Hematocrit 28.5 % (39.0-53.0) Mean Corpuscular Volume 87 fL (79-100) Mean Corpuscular Hemoglobin 30 pg (25-35) Mean Corpuscular Hemoglobin Concent 35 g/dL (31-37) Red Cell Distribution Width 13.6 % (11.5-14.5) Platelet Count 399 x10^3/uL (140-400) Neutrophils (%) (Auto) 67 % (31-73) Lymphocytes (%) (Auto) 20 % (24-48) Monocytes (%) (Auto) 10 % (0-9) Eosinophils (%) (Auto) 3 % (0-3) Basophils (%) (Auto) 1 % (0-3) Neutrophils # (Auto) 6.6 x10^3uL (1.8-7.7) Lymphocytes # (Auto) 2.0 x10^3/uL (1.0-4.8) Monocytes # (Auto) 1.0 x10^3/uL (0.0-1.1) Eosinophils # (Auto) 0.3 x10^3/uL (0.0-0.7) Basophils # (Auto) 0.1 x10^3/uL (0.0-0.2) Prothrombin Time 14.5 SEC (11.7-14.0) Prothromb Time International Ratio 1.2 (0.8-1.1) Sodium Level 140 mmol/L (136-145) Potassium Level 3.8 mmol/L (3.5-5.1) Chloride Level 103 mmol/L (98-107) Carbon Dioxide Level 23 mmol/L (21-32) Anion Gap 14 (6-14) Blood Urea Nitrogen 16 mg/dL (8-26) Creatinine 0.7 mg/dL (0.7-1.3) Estimated GFR (Cockcroft-Gault) 113.9 Glucose Level 141 mg/dL (70-99) Calcium Level 9.2 mg/dL (8.5-10.1) Test 07/14/18 09:28 07/14/18 11:36 Glucose (Fingerstick) 165 mg/dL (70-99) 254 mg/dL (70-99) Micro Microbiology 07/12/18 Blood Culture - Preliminary, Resulted NO GROWTH AFTER 1 DAY Objective Assessment S/p open Amputation of the right great toe including the first metatarsal head 07/14.- infection Leukocytosis - better but now s/p Dexamethasone today DM Sulfa - allergy - was not effective 10 years ago - denies Rash/SOA/S welling/Renal failure - etc 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
[2018-07-14] MEDS: VANCOMYCIN PER PHARMACY MC PRN (12:38)
--- NOTE | 2018-07-14 13:22 | NUR ---
PICC Pre-Insertion Note Allergies and reactions Latex INR 1.2 BUN 16 Cr 0.7 Platelets 399 Blood culture done yes blood culture results no growth x 1 day Order Verified yes Consent signed yes Previous PICC placement - central access/ no PICC Past Medical/Surgical history and current diagnosis reviewed yes Patient Medical /Surgical History Related to PICC line placement Infectious Disease consult Past central line or venous access device placement Special considerations for PICC line placement Using crutches PICC placement indication termite exterminator antibiotic usage, name of PICC Nurse Tamar Gan RN
--- NOTE | 2018-07-14 15:00 | NUR ---
PICC Insertion Note from Left arm insertion Procedure: Following complete explanation of the PICC procedure including the indications, risks, and potential complications, informed consent was obtained. The possibility for infection was discussed along with signs, symptoms, and prevention. All the questions were answered. Written and verbal patient education was provided. Hand hygiene performed. Standardized central line checklist was utilized. The patient was placed in the supine position, the arm was prepped with chlorhexidine and patient draped with maximum sterile barrier. 5 mL 1% lidocaine was infiltrated into the skin to provide local anesthesia. A thorough assessment of Left upper extremity completed. Using real-time ultrasound guidance and standardized micro puncture set, the Brachial vein was punctured and a peel away sheath was placed using the modified Seldinger technique. A tip location device was used to ensure adequate catheter placement. The catheter was secured using a securement device and an antimicrobial patch was applied directly on the insertion site followed by a transparent dressing. All ports withdraw blood and flush without resistance.- After first placement would not give blood return, Second attempt with new kit made and after dressed and blood return evident, line flushed with 10cc saline and would not give blood return. Chest xray ordered and found that line had went from L brachiocephalic vein to R brachiocephalic vein and was not in SVC. Attempt was thwarted to try to get tip to drop and R arm was ultrasound' to make third attempt. Patient tolerated the procedure without apparent complication(s).
--- NOTE | 2018-07-14 15:44 | RAD ---
CHEST AP ONLY Clinical indications: EVALUATE FOR PICC LINE placement. COMPARISON: No previous chest x-ray available. Findings: A left upper extremity PICC line has been placed and the tip is seen coursing from the left brachiocephalic vein into the right brachiocephalic vein and not the SVC. There is moderate elevation of the right hemidiaphragm No acute lung infiltrate or pleural effusion or pulmonary edema or lung mass or pneumothorax is seen. The heart size, pulmonary vasculature, mediastinum and both edel are unremarkable. The lateral aspect of the left clavicle is absent and there is displacement of the medial aspect of the left clavicle. This may related to old trauma or surgery. Impression: No acute lung infiltrate or pneumothorax. Left upper extremity PICC line tip is seen coursing from the left brachiocephalic vein and into the right brachiocephalic vein and NOT the SVC. Electronically signed by: Randy Dowell MD (07/14/2018 3:41 PM) [facility]
--- NOTE | 2018-07-14 16:45 | NUR ---
PICC Insertion in R upper arm Procedure: Following complete explanation of the PICC procedure including the indications, risks, and potential complications, informed consent was obtained. The possibility for infection was discussed along with signs, symptoms, and prevention. All the questions were answered. Written and verbal patient education was provided. Hand hygiene performed. Standardized central line checklist was utilized. The patient was placed in the supine position, the arm was prepped with chlorhexidine and patient draped with maximum sterile barrier. 2 mL 1% lidocaine was infiltrated into the skin to provide local anesthesia. A thorough assessment of Right upper extremity completed. Using real-time ultrasound guidance and standardized micro puncture set, the Basilic vein was punctured and a peel away sheath was placed using the modified Seldinger technique. A tip location device was used to ensure adequate catheter placement. The catheter was secured using a securement device and an antimicrobial patch was applied directly on the insertion site followed by a transparent dressing. All ports withdraw blood and flush without resistance. Patient tolerated the procedure without apparent complication(s). single Lumen Power PICC placement successful and uncomplicated. Placement verified by EKG tip confirmation system and/or chest x-ray. Tip located in the CAJ/SVC. Complications: none Left arm PICC line pulled after Right arm PICC line placed. R PICC flushed and blood return with no problems. R arm PICC line catheter trimmed at 40cm with 1cm exposed at insertion site.
--- NOTE | 2018-07-14 16:54 | NUR ---
PICC Preinsertion Note Allergies and reactions latex INR 1.2 BUN 16 Cr 0.7 Platelets 399 Blood culture done yes blood culture results no growth x 1 day Order Verified yes Consent signed yes Previous PICC placement no Past Medical/Surgical history and current diagnosis reviewed yes Patient Medical /Surgical History Related to PICC line placement Diabetes Infectious Disease consult Past central line or venous access device placement Special considerations for PICC line placement Using crutches PICC placement indication alf antibiotic usage, name of PICC Nurse Tamar Gan RN Addendum: 07/14/18 at 1656 by MARGARITA GAN RN Amended: Links added. Addendum: 07/14/18 at 1704 by MARGARITA GAN RN time on this note was actual at 1604.
[2018-07-14] MEDS: ATORVASTATIN CALCIUM 20 MG TABLET PO SCH (21:13)
[2018-07-14] MEDS: LACTOBACILLUS RHAMNOSUS GG 1 CAPSULE. PO SCH (21:13)
[2018-07-15] VITALS (7 sets, daily range): BP systolic 113–151; BP diastolic 59–77
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
[2018-07-15 03:58] LABS: BASO # 0.1 x10^3/uL (0.0-0.2); BASO % 1 % (0-3); EOS # 0.1 x10^3/uL (0.0-0.7); EOS % 1 % (0-3); HEMATOCRIT 27.8 % (39.0-53.0); HEMOGLOBIN 9.3 g/dL (13.0-17.5); LYMPH # 2.5 x10^3/uL (1.0-4.8); LYMPH % 26 % (24-48); MEAN CORPUSCULAR HEMOGLOBIN 30 pg (25-35); MEAN CORPUSCULAR HGB CONC 34 g/dL (31-37); MEAN CORPUSCULAR VOLUME 88 fL (79-100); MONO # 0.7 x10^3/uL (0.0-1.1); MONO % 7 % (0-9); NEUT # 6.3 x10^3uL (1.8-7.7); NEUT % 64 % (31-73); PLATELET COUNT 404 x10^3/uL (140-400); RED BLOOD COUNT 3.15 x10^6/uL (4.30-5.70); RED CELL DISTRIBUTION WIDTH 13.4 % (11.5-14.5); WHITE BLOOD COUNT 9.8 x10^3/uL (4.0-11.0)
[2018-07-15 04:15] LABS: CALCIUM 8.8 mg/dL (8.5-10.1); CREATININE 0.7 mg/dL (0.7-1.3); GFR 113.9; POTASSIUM 3.7 mmol/L (3.5-5.1)
[2018-07-15 04:20] LABS: VANC TR 10.3 mcg/mL (10.0-20.0)
[2018-07-15] MEDS: VANCOMYCIN 1.5 GM in IV NORMAL SALINE 500ML BAG 500 ML IV SCH ×2 (04:34→16:49)
[2018-07-15] MEDS: VANCOMYCIN PER PHARMACY MC PRN ×2 (04:37→12:18)
--- NOTE | 2018-07-15 04:37 | NUR ---
Pharmacy Vancomycin Dosing Note S:Consulted to monitor and dose vancomycin started 07/13/18. O:GABRIELA VEGA is a 62 year old M with Abscess Cellulitis . Height: 5 feet, 11 inches Weight: 83.628760 kg Wise Body Weight: 75.30 Adjusted Body Weight: 78.58 Dosing Weight: Actual Other Antibiotics: ZOSYN LABS: Last BUN: 16 Last Creatinine: 0.7 Creatinine Clearance: >100 mL/min Last WBC: 9.9 Last Procalcitonin: Tmax (past 24 hours): 98.5 Microbiology: 07/12 Blood: no growth I/O: 1050/450 Drug Levels: Last Trough level: 10.3, TRUE TROUGH 9.1 on 07/15/18 at 0300 Last dose given 07/14/18 at 0355 Vancomycin Dosing: Loading Dose: 2000 mg x1 Dosing Weight: Actual Target Trough: 10-20 A: Based on: TRUE TROUGH P: 1. Begin Vancomycin 1500 mg IV q12h 2. Follow up Trough level on 07/16/18 at 1630 3. Pharmacy will continue to monitor, follow and adjust therapy as needed. REBECCA FISHER RPH, 07/15/188 Signed: 07/15/18 at 437 by REBECCA FISHER RPH PHA
[2018-07-15] MEDS: PIPERACILLIN/TAZOBACTAM 3.375 GM in IV NORMAL SALINE 50ML 50 ML IV SCH ×6 (06:38→23:57)
[2018-07-15] MEDS: INSULIN LISPRO 300 UNITS/3 ML INSULN.PEN. SQ SCH ×4 (07:30→21:00)
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
[2018-07-15] MEDS: FERROUS SULFATE 325 MG TABLET. PO SCH (08:01)
[2018-07-15] MEDS: ASPIRIN CHEWABLE 81 MG TABLET. PO SCH (08:01)
[2018-07-15] MEDS: PIOGLITAZONE 15 MG TABLET. PO SCH (08:01)
[2018-07-15] MEDS: MULTIVITAMIN with MINERAL TABLET. PO SCH (08:01)
[2018-07-15] MEDS: LACTOBACILLUS RHAMNOSUS GG 1 CAPSULE. PO SCH ×2 (08:01→20:30)
[2018-07-15] MEDS: GEMFIBROZIL 600 MG TABLET. PO SCH ×2 (08:01→20:29)
[2018-07-15] MEDS: glipiZIDE 5 MG TABLET PO SCH ×2 (08:03→16:48)
--- NOTE | 2018-07-15 10:19 | NUR ---
SW following pt. PT/OT pending and ID also consulted. Will await for dc recommendation to assess skilled needs.
--- NOTE | 2018-07-15 10:46 | PDOC ---
Infectious Disease Note Subjective Subjective Doing ok. No F/C/S/N/v/D/SOA/Rash/pain ROS ROS o/w neg Vital Sign Vital Signs Vital Signs Date Time Temp Pulse Resp B/P (MAP) Pulse Ox O2 Delivery O2 Flow Rate FiO2 07/15/18 08:00 Room Air 07/15/18 07:00 98.0 66 18 134/72 (92) 96 98.0 07/14/18 08:17 8 Physical Exam PHYSICAL EXAM CONSTITUTIONAL: He is pleasant. He is cooperative. He is in no acute distress. He is sitting upright in chair after transfer from bed. HEENT: Pupils are equal and reactive. He has normal conjunctivae. Oral cavity, pharynx is clear. NECK: Supple. No JVD. LUNGS: Decreased in the bases. HEART: S1, S2. ABDOMEN: Soft, nontender and nondistended. Decreased, but positive bowel sounds. EXTREMITIES: Without clubbing or cyanosis. He has a well-healed scars. His right foot is dressed. Peripheral IV is clean. SKIN: Normal, without signs of rash. Warm to touch. NEUROLOGIC: He is nonfocal. Affect is appropriate. IV: RUE PICC clean Labs Lab Laboratory Tests Test 07/14/18 11:36 07/14/18 13:10 07/14/18 16:52 07/14/18 20:59 Glucose (Fingerstick) 254 mg/dL (70-99) 254 mg/dL (70-99) 197 mg/dL (70-99) Erythrocyte Sedimentation Rate 125 (0-15) Test 07/15/18 03:47 07/15/18 07:39 White Blood Count 9.8 x10^3/uL (4.0-11.0) Red Blood Count 3.15 x10^6/uL (4.30-5.70) Hemoglobin 9.3 g/dL (13.0-17.5) Hematocrit 27.8 % (39.0-53.0) Mean Corpuscular Volume 88 fL (79-100) Mean Corpuscular Hemoglobin 30 pg (25-35) Mean Corpuscular Hemoglobin Concent 34 g/dL (31-37) Red Cell Distribution Width 13.4 % (11.5-14.5) Platelet Count 404 x10^3/uL (140-400) Neutrophils (%) (Auto) 64 % (31-73) Lymphocytes (%) (Auto) 26 % (24-48) Monocytes (%) (Auto) 7 % (0-9) Eosinophils (%) (Auto) 1 % (0-3) Basophils (%) (Auto) 1 % (0-3) Neutrophils # (Auto) 6.3 x10^3uL (1.8-7.7) Lymphocytes # (Auto) 2.5 x10^3/uL (1.0-4.8) Monocytes # (Auto) 0.7 x10^3/uL (0.0-1.1) Eosinophils # (Auto) 0.1 x10^3/uL (0.0-0.7) Basophils # (Auto) 0.1 x10^3/uL (0.0-0.2) Sodium Level 141 mmol/L (136-145) Potassium Level 3.7 mmol/L (3.5-5.1) Chloride Level 106 mmol/L (98-107) Carbon Dioxide Level 24 mmol/L (21-32) Anion Gap 11 (6-14) Blood Urea Nitrogen 17 mg/dL (8-26) Creatinine 0.7 mg/dL (0.7-1.3) Estimated GFR (Cockcroft-Gault) 113.9 Glucose Level 107 mg/dL (70-99) Calcium Level 8.8 mg/dL (8.5-10.1) Vancomycin Level Trough 10.3 mcg/mL (10.0-20.0) Vancomycin Last Dose Date Vancomycin Last Dose Time Glucose (Fingerstick) 95 mg/dL (70-99) Micro Microbiology 07/12/18 Blood Culture - Preliminary, Resulted NO GROWTH AFTER 1 DAY Objective Assessment S/p open Amputation of the right great toe including the first metatarsal head 07/14.- infection. Few GNR/GPC Leukocytosis - better but now s/p Dexamethasone today DM Sulfa - allergy - was not effective 10 years ago - denies Rash/SOA/Swelling/Renal failure - etc H/o MRSA - recent screen neg Plan Plan of Care On Vanc/Zosyn F/u labs and cults RONALD MENDES MD Jul 15, 2018 10:46
[2018-07-15] MEDS: HYDROcodone/APAP 5/325MG 1 TAB TABLET PO PRN (12:28)
--- NOTE | 2018-07-15 13:00 | NUR ---
Wound Care Pt seen for wound care follow up and wound vac application to R foot open amputation. RERE Maravilla with Vascular at bedside to assess, R foot dressing removed, wound cleaned, measured and photographed, orders received to apply Veraflo vac. Wound bed is clean, minimal bone exposed, peripheral redness and swelling remain. Ostomy ring applied to periwound and 1 piece of quinteros/black Veraflo foam placed into wound bed, track pad placed directly over, trying to minimize tape on skin, as pt has very sensitive skin with adhesive. After vac application, a fluctuant area was noted on medial mid/hindfoot, periwound redness/purplish coloring in this area as well. Called and requested that RERE Maravilla return to evaluate these findings, not overly concerned with appearance, stated they will f/u on Wednesday. Pt educated on troubleshooting vac, and notifying staff of any alarms, pt v/u. No other wounds noted on full skin inspection.
--- NOTE | 2018-07-15 14:29 | PDOC ---
Provider Note Provider Note S: POD#1 of Amputation of the right great toe including the first metatarsal head. Pt doing well without complaints. Pain controlled. Has not ambulated yet. WC RN with concern of "fluctuant area" of medial right foot. Good appetite. O: VSS, afebrile Alert, no apparent distress Respirations nonlabored Good right PT pulse. Right foot with scattered deep erythematous macules along medial foot and lateral dorsal foot and ankle, does not resemble cellulitis. Soft area along medial foot with no concern for infection, likely edematous. Right toe wound with good granulation tissue throughout, bone exposed. No active bleeding. No signs of overt infection. A/P: POD#1 of Amputation of the right great toe including the first metatarsal head. - pt doing well, pain controlled - place vac today, veraflo ok. We will see wound again on Wednesday. - cont abx per ID - PT to help with ambulation. Pt cannot use half shoe due to foot drop. Needs to remain right forefoot offloading. SHANNA CARTER Jul 15, 2018 14:29
[2018-07-15] MEDS: ATORVASTATIN CALCIUM 20 MG TABLET PO SCH (20:30)
[2018-07-16 03:00] VITALS: BP 123/63
[2018-07-16] MEDS: VANCOMYCIN 1.5 GM in IV NORMAL SALINE 500ML BAG 500 ML IV SCH ×2 (04:31→16:44)
[2018-07-16] MEDS: PIPERACILLIN/TAZOBACTAM 3.375 GM in IV NORMAL SALINE 50ML 50 ML IV SCH ×3 (06:41→18:33)
[2018-07-16 07:00] VITALS: BP 130/68
[2018-07-16] MEDS: INSULIN LISPRO 300 UNITS/3 ML INSULN.PEN. SQ SCH ×4 (07:30→21:00)
[2018-07-16] MEDS: FERROUS SULFATE 325 MG TABLET. PO SCH (07:47)
[2018-07-16] MEDS: ASPIRIN CHEWABLE 81 MG TABLET. PO SCH (07:47)
[2018-07-16] MEDS: glipiZIDE 5 MG TABLET PO SCH ×2 (07:47→16:44)
[2018-07-16] MEDS: GEMFIBROZIL 600 MG TABLET. PO SCH ×2 (07:47→21:27)
[2018-07-16] MEDS: LACTOBACILLUS RHAMNOSUS GG 1 CAPSULE. PO SCH ×2 (07:47→21:27)
[2018-07-16] MEDS: PIOGLITAZONE 15 MG TABLET. PO SCH (07:47)
[2018-07-16] MEDS: MULTIVITAMIN with MINERAL TABLET. PO SCH (07:48)
[2018-07-16 11:00] VITALS: BP 120/71
--- NOTE | 2018-07-16 13:47 | PDOC ---
Infectious Disease Note Subjective Subjective Comfortable, denies pain Little bit of diarrhea No FCS/N/Vcramps ROS ROS per HPI Vital Sign Vital Signs Vital Signs Date Time Temp Pulse Resp B/P (MAP) Pulse Ox O2 Delivery O2 Flow Rate FiO2 07/16/18 11:00 97.7 73 18 120/71 (87) 97 Room Air 97.7 07/15/18 16:46 8.0 Physical Exam PHYSICAL EXAM GENERAL: Sleeping, arouses to name HEENT: Oral cavity, pharynx is clear. LUNGS: Decreased in the bases. HEART: S1, S2. ABDOMEN: Soft, nontender and nondistended. Decreased, but positive bowel sounds. EXTREMITIES: Without clubbing or cyanosis. Right foot bandaged with wound vac in place. SKIN: No rash NEUROLOGIC: Responds appropriately RUE PICC clean Labs Lab Laboratory Tests Test 07/15/18 16:20 07/15/18 20:57 07/16/18 07:26 07/16/18 11:00 Glucose (Fingerstick) 104 mg/dL (70-99) 90 mg/dL (70-99) 111 mg/dL (70-99) 106 mg/dL (70-99) Micro AEROBIC RES 1 Preliminary Streptococcus species GRAM STAIN RES 3 Final Comment Few gram negative rods. Objective Assessment S/p open Amputation of the right great toe including the first metatarsal head 07/14.- infection. ESR 125, GPC/GNR, strep so far Leukocytosis - better DM Sulfa - allergy - was not effective 10 years ago - denies Rash/SOA/Swelling/Renal failure - etc H/o MRSA - recent screen neg Plan Plan of Care On Vanc and Zosyn Trough 10.3 F/u labs and cults PICC maintenance care Attending Co-Sign The patient was seen and interviewed as well as examined at the bedside. The chart was reviewed. The case was discussed. Agree with the plan of care. NADEEN WRAY APRN Jul 16, 2018 13:47 GISSELLE FIGUEROA MD Jul 16, 2018 14:29
--- NOTE | 2018-07-16 14:48 | PDOC ---
PROGRESS NOTES Subjective Subjective Patient without complaint. No significant pain in right foot. Planning on going to when ready for discharge. Objective Objective Vital Signs Date Time Temp Pulse Resp B/P (MAP) Pulse Ox O2 Delivery O2 Flow Rate FiO2 07/16/18 11:00 97.7 73 18 120/71 (87) 97 Room Air 97.7 07/15/18 16:46 8.0 Intake and Output 07/16/18 07:00 Intake Total 3620 ml Output Total 900 ml Balance 2720 ml Intake Oral 3020 ml IV Total 600 ml Output Urine Total 900 ml # Voids 4 # Bowel Movements 2 Physical Exam Abdomen: Normal bowel sounds, Soft, No tenderness Heart: Regular rate Extremities: No edema, Other (wound vac and dressing in place R foot) General: Alert, Oriented X3, No acute distress Lungs: Clear to auscultation Assessment Assessment Problems Medical Problems: (1) Cellulitis of right foot Status: Acute (2) Diabetic foot ulcer Status: Acute (3) Sepsis Status: Acute Plan Plan of Care 1. Osteomyelitis R foot, POD #2 great toe amputation - stable, continue wound care. Abx per ID, awaiting final wound culture reports. 2. DM2 - well controlled, continue present medication. Comment Review of Relevant I have reviewed the following items dudley (where applicable) has been applied. Labs Laboratory Tests Test 07/14/18 16:52 07/14/18 20:59 07/15/18 03:47 07/15/18 07:39 Glucose (Fingerstick) 254 mg/dL (70-99) 197 mg/dL (70-99) 95 mg/dL (70-99) White Blood Count 9.8 x10^3/uL (4.0-11.0) Red Blood Count 3.15 x10^6/uL (4.30-5.70) Hemoglobin 9.3 g/dL (13.0-17.5) Hematocrit 27.8 % (39.0-53.0) Mean Corpuscular Volume 88 fL (79-100) Mean Corpuscular Hemoglobin 30 pg (25-35) Mean Corpuscular Hemoglobin Concent 34 g/dL (31-37) Red Cell Distribution Width 13.4 % (11.5-14.5) Platelet Count 404 x10^3/uL (140-400) Neutrophils (%) (Auto) 64 % (31-73) Lymphocytes (%) (Auto) 26 % (24-48) Monocytes (%) (Auto) 7 % (0-9) Eosinophils (%) (Auto) 1 % (0-3) Basophils (%) (Auto) 1 % (0-3) Neutrophils # (Auto) 6.3 x10^3uL (1.8-7.7) Lymphocytes # (Auto) 2.5 x10^3/uL (1.0-4.8) Monocytes # (Auto) 0.7 x10^3/uL (0.0-1.1) Eosinophils # (Auto) 0.1 x10^3/uL (0.0-0.7) Basophils # (Auto) 0.1 x10^3/uL (0.0-0.2) Sodium Level 141 mmol/L (136-145) Potassium Level 3.7 mmol/L (3.5-5.1) Chloride Level 106 mmol/L (98-107) Carbon Dioxide Level 24 mmol/L (21-32) Anion Gap 11 (6-14) Blood Urea Nitrogen 17 mg/dL (8-26) Creatinine 0.7 mg/dL (0.7-1.3) Estimated GFR (Cockcroft-Gault) 113.9 Glucose Level 107 mg/dL (70-99) Calcium Level 8.8 mg/dL (8.5-10.1) Vancomycin Level Trough 10.3 mcg/mL (10.0-20.0) Vancomycin Last Dose Date Vancomycin Last Dose Time Test 07/15/18 11:44 07/15/18 16:20 07/15/18 20:57 07/16/18 07:26 Glucose (Fingerstick) 101 mg/dL (70-99) 104 mg/dL (70-99) 90 mg/dL (70-99) 111 mg/dL (70-99) Test 07/16/18 11:00 Glucose (Fingerstick) 106 mg/dL (70-99) Laboratory Tests Test 07/15/18 16:20 07/15/18 20:57 07/16/18 07:26 07/16/18 11:00 Glucose (Fingerstick) 104 mg/dL (70-99) 90 mg/dL (70-99) 111 mg/dL (70-99) 106 mg/dL (70-99) Microbiology 07/12/18 Blood Culture - Preliminary, Resulted NO GROWTH AFTER 3 DAYS 07/14/18 Anaerobic/Aerobic Culture, Resulted Pending 07/14/18 Anaerobic Culture Result 1 (MARIANN), Resulted Pending 07/14/18 Aerobic Culture, Resulted Pending 07/14/18 Aerobic Culture Result 1 (MARIANN), Resulted Pending 07/14/18 Gram Stain - Final, Resulted 07/14/18 Gram Stain Result 1 (MARIANN) - Final, Resulted 07/14/18 Gram Stain Result 2 (MARIANN) - Final, Resulted Medications Current Medications Vancomycin HCl (Vanco Per Pharmacy) 1 each 1X STAT MC ; Start 07/12/18 at 16:32; Stop 07/12/18 at 16:42; Status DC Piperacillin Sod/ Tazobactam Sod 3.375 gm/Sodium Chloride 50 ml @ 100 mls/hr 1X ONCE IV Last administered on 07/12/18at 17:51; Start 07/12/18 at 16:45; Stop 07/12/18 at 17:14; Status DC Vancomycin HCl 2 gm/Sodium Chloride 500 ml @ 250 mls/hr 1X ONCE IV Last administered on 07/12/18at 19:39; Start 07/12/18 at 16:45; Stop 07/12/18 at 18:44; Status DC Sodium Chloride 1,000 ml @ 1,000 mls/hr 1X ONCE IV Last administered on 07/12/18at 17:51; Start 07/12/18 at 17:15; Stop 07/12/18 at 18:14; Status DC Aspirin (Children'S Aspirin) 81 mg DAILY PO Last administered on 07/16/18at 07:47; Start 07/13/18 at 09:00 Atorvastatin Calcium (Lipitor) 20 mg HS PO Last administered on 07/15/18at 20:30; Start 07/12/18 at 21:00 Ferrous Sulfate (Feosol) 325 mg DAILY PO Last administered on 07/16/18at 07:47; Start 07/13/18 at 09:00 Gemfibrozil (Lopid) 600 mg BID PO Last administered on 07/16/18at 07:47; Start 07/12/18 at 21:00 Acetaminophen/ Hydrocodone Bitart (Lortab 5/325) 1 tab PRN Q6HRS PRN PO PAIN Last administered on 07/15/18 12:28; Start 07/12/18 at 20:00 Metformin HCl (Glucophage) 1,000 mg BIDWMEALS PO Last administered on 07/13/18 17:33; Start 07/13/18 at 08:00; Stop 07/14/18 at 07:03; Status DC Multivitamins (Thera M Plus) 1 tab DAILY PO Last administered on 07/16/18 07:48; Start 07/13/18 at 09:00 Pioglitazone HCl (Actos) 15 mg DAILY PO Last administered on 07/16/18 07:47; Start 07/13/18 at 09:00 Insulin Human Lispro (HumaLOG) 0-5 UNITS QIDACHS SQ Last administered on 17:07; Start 07/12/18 at 21:00 Dextrose (Dextrose 50%-Water Syringe) 12.5 gm PRN Q15MIN PRN IV SEE COMMENTS; Start 07/12/18 at 20:15 Piperacillin Sod/ Tazobactam Sod (Zosyn Per Pharmacy) 1 each PRN DAILY PRN MC SEE COMMENTS Last administered on 07/15/18 04:36; Start 07/12/18 at 20:15 Piperacillin Sod/ Tazobactam Sod 3.375 gm/Sodium Chloride 50 ml @ 100 mls/hr Q6HRS IV Last administered on 07/16/18 11:35; Start 07/13/18 at 00:00 Vancomycin HCl (Vanco Per Pharmacy) 1 each PRN DAILY PRN MC SEE COMMENTS Last administered on 07/15/18 12:18; Start 07/13/18 at 15:15 Vancomycin HCl 1.25 gm/Sodium Chloride 250 ml @ 167 mls/hr Q12H IV Last administered on 07/14/18 16:56; Start 07/13/18 at 15:30; Stop 07/15/18 at 04:26; Status DC Vancomycin HCl (Vancomycin Trough Level) 1 each 1X ONCE MC Last administered on 07/15/18at 03:00; Start 07/15/18 at 03:00; Stop 07/15/18 at 03:01; Status DC Gadobutrol (Gadavist) 7.5 mmol 1X ONCE IV Last administered on 07/13/18at 15:50; Start 07/13/18 at 15:30; Stop 07/13/18 at 15:31; Status DC Ondansetron HCl (Zofran) 4 mg PRN Q6HRS PRN IV NAUSEA/VOMITING; Start 07/14/18 at 07:00; Stop 07/14/18 at 20:00; Status DC Fentanyl Citrate (Fentanyl 2ml Vial) 25 mcg PRN Q5MIN PRN IV MILD PAIN; Start 07/14/18 at 07:00; Stop 07/14/18 at 20:00; Status DC Fentanyl Citrate (Fentanyl 2ml Vial) 50 mcg PRN Q5MIN PRN IV MODERATE TO SEVERE PAIN; Start 07/14/18 at 07:00; Stop 07/14/18 at 20:00; Status DC Morphine Sulfate (Morphine Sulfate) 1 mg PRN Q10MIN PRN IV SEVERE PAIN; Start 07/14/18 at 07:00; Stop 07/14/18 at 20:00; Status DC Ringer's Solution 1,000 ml @ 30 mls/hr Q24H IV Last administered on 07/14/18at 07:00; Start 07/14/18 at 07:00; Stop 07/14/18 at 18:59; Status DC Lidocaine HCl (Xylocaine-Mpf 1% 2ml Vial) 2 ml PRN 1X PRN ID PRIOR TO IV START; Start 07/14/18 at 07:00; Stop 07/14/18 at 20:00; Status DC Hydromorphone HCl (Dilaudid) 0.5 mg PRN Q10MIN PRN IV SEV PAIN, Second choice; Start 07/14/18 at 07:00; Stop 07/14/18 at 20:00; Status DC Prochlorperazine Edisylate (Compazine) 5 mg PACU PRN PRN IV NAUSEA, MRX1; Start 07/14/18 at 07:00; Stop 07/14/18 at 20:00; Status DC Vancomycin HCl 1 gm/Sodium Chloride 250 ml @ 250 mls/hr 1X STAT IV ; Start 07/13/18 at 17:09; Stop 07/13/18 at 18:08; Status UNV Piperacillin Sod/ Tazobactam Sod 3.375 gm/Sodium Chloride 50 ml @ 100 mls/hr 1X STAT IV ; Start 07/13/18 at 17:09; Stop 07/13/18 at 17:38; Status UNV Sodium Chloride 1,000 ml @ 100 mls/hr Q10H IV ; Start 07/13/18 at 18:00; Stop 07/13/18 at 18:00; Status DC Cefazolin Sodium 1 gm/Sodium Chloride 500 ml @ 500 mls/hr 1X ONCE IRR Last administered on 07/14/18at 07:30; Start 07/14/18 at 07:30; Stop 07/14/18 at 08:29; Status DC Glipizide (Glucotrol) 5 mg BIDBFRMEAL PO Last administered on 07/16/18at 07:47; Start 07/14/18 at 07:30 Propofol 20 ml @ As Directed STK-MED ONCE IV ; Start 07/14/18 at 07:02; Stop 07/14/18 at 07:03; Status DC Famotidine (Pepcid Vial) 20 mg STK-MED ONCE .ROUTE ; Start 07/14/18 at 07:02; Stop 07/14/18 at 07:03; Status DC Lidocaine HCl (Lidocaine Pf 2% Vial) 5 ml STK-MED ONCE .ROUTE ; Start 07/14/18 at 07:02; Stop 07/14/18 at 07:03; Status DC Ondansetron HCl (Zofran) 4 mg STK-MED ONCE .ROUTE ; Start 07/14/18 at 07:02; Stop 07/14/18 at 07:03; Status DC Fentanyl Citrate (Fentanyl 2ml Vial) 100 mcg STK-MED ONCE .ROUTE ; Start 07/14/18 at 07:03; Stop 07/14/18 at 07:04; Status DC Midazolam HCl (Versed) 2 mg STK-MED ONCE .ROUTE ; Start 07/14/18 at 07:03; Stop 07/14/18 at 07:04; Status DC Dexamethasone Sodium Phosphate (Decadron) 4 mg STK-MED ONCE .ROUTE ; Start 07/14/18 at 07:04; Stop 07/14/18 at 07:05; Status DC Sevoflurane (Ultane) 30 ml STK-MED ONCE IH ; Start 07/14/18 at 08:15; Stop 07/14/18 at 08:16; Status DC Lactobacillus Rhamnosus (Culturelle) 1 cap BID PO Last administered on 07/16/18at 07:47; Start 07/14/18 at 21:00 Vancomycin HCl 1.5 gm/Sodium Chloride 500 ml @ 250 mls/hr Q12H IV Last administered on 07/16/18at 04:31; Start 07/15/18 at 05:00 Vancomycin HCl (Vancomycin Trough Level) 1 each 1X ONCE MC ; Start 07/16/18 at 16:30; Stop 07/16/18 at 16:31 Active Scripts Active Reported Urinozinc Prostate Formula Cap (Multivits-Min/Hrb Cb121) 1 Each Capsule 1 Each PO DAILY Amoxicillin 500 Mg Capsule 500 Mg PO QID PRN Amox Tr-K Clv 875-125 Mg Tab (Amoxicillin/Potassium Clav) 1 Each Tablet 1 Tab PO BID Multi Vitamin Daily (Multivitamin) 1 Each Tablet 1 Each PO Hydrocodone-Apap 5-325 (Hydrocodone Bit/Acetaminophen) 1 Each Tablet 1 Tab PO PRN Q6HRS PRN Atorvastatin Calcium 20 Mg Tablet 20 Mg PO HS Ferrous Sulfate 325 Mg Tablet 1 Tab PO DAILY Aspirin 81 Mg Tab.chew 81 Mg PO Pioglitazone Hcl 15 Mg Tablet 15 Mg PO DAILY Gemfibrozil 600 Mg Tablet 600 Mg PO BID Metformin Hcl 1,000 Mg Tablet 1 Tab PO BID Vitals/I & O Vital Sign - Last 24 Hours 07/15/18 07/15/18 07/15/18 07/15/18 15:00 16:46 19:00 19:43 Temp 98.1 98.1 98.2 98.1 98.1 98.2 Pulse 81 81 78 Resp 18 18 B/P (MAP) 113/62 (79) 113/62 (79) 113/59 (77) Pulse Ox 94 94 97 O2 Delivery Room Air Room Air Room Air Room Air O2 Flow Rate 8.0 07/15/18 07/16/18 07/16/18 07/16/18 23:00 03:00 07:00 08:00 Temp 98.5 97.6 98.1 98.5 97.6 98.1 Pulse 75 71 66 Resp 18 18 18 B/P (MAP) 151/77 (101) 123/63 (83) 130/68 (88) Pulse Ox 96 95 95 O2 Delivery Room Air Room Air Room Air Room Air 07/16/18 11:00 Temp 97.7 97.7 Pulse 73 Resp 18 B/P (MAP) 120/71 (87) Pulse Ox 97 O2 Delivery Room Air Intake and Output 07/15/18 07/15/18 07/16/18 15:00 23:00 07:00 Intake Total 700 ml 1650 ml 1270 ml Output Total 900 ml Balance 700 ml 1650 ml 370 ml RAKESH RITCHIE MD Jul 16, 2018 14:48
[2018-07-16 15:00] VITALS: BP 125/73
[2018-07-16 19:00] VITALS: BP 117/70
[2018-07-16] MEDS: ATORVASTATIN CALCIUM 20 MG TABLET PO SCH (21:27)
[2018-07-16 23:00] VITALS: BP 162/80
[2018-07-17] MEDS: PIPERACILLIN/TAZOBACTAM 3.375 GM in IV NORMAL SALINE 50ML 50 ML IV SCH ×4 (00:09→17:00)
[2018-07-17 03:00] VITALS: BP 108/61
[2018-07-17] MEDS: VANCOMYCIN 1.5 GM in IV NORMAL SALINE 500ML BAG 500 ML IV SCH ×3 (05:00→18:19)
[2018-07-17] MEDS ORDERED: ALTEPLASE 1MG SYRINGE. INT CAT ONE (05:30)
[2018-07-17] MEDS: VANCOMYCIN PER PHARMACY MC PRN (06:32)
--- NOTE | 2018-07-17 06:32 | NUR ---
Pharmacy Vancomycin Dosing Note S:Consulted to monitor and dose vancomycin started 07/13/18. O:GABRIELA VEGA is a 62 year old M with Abscess Cellulitis . Height: 5 feet, 11 inches Weight: 83.369370 kg Jackson Body Weight: 75.30 Adjusted Body Weight: 78.58 Dosing Weight: Actual Other Antibiotics: ZOSYN LABS: Last BUN: 17 Last Creatinine: 0.7 Creatinine Clearance: >100 mL/min Last WBC: 9.8 Last Procalcitonin: Tmax (past 24 hours): 98.4 Microbiology: 07/12 Blood: no growth Gm stain foot shows a few gpc, gnr I/O: 550/1610 Drug Levels: Last Trough level: 14 on 07/17/18 at 0430 Last dose given 07/14/18 at 0355 Vancomycin Dosing: Loading Dose: 2000 mg x1 Dosing Weight: Actual Target Trough: 10-20 A: Based on: TROUGH P: 1. Continue Vancomycin 1500 mg IV q12h 2. Follow up Trough level IF NEEDED 3. Pharmacy will continue to monitor, follow and adjust therapy as needed. REBECCA FISHER RPH, 07/17/18 0632 Signed: 07/17/18 at 0632 by REBECCA FISHER RPH PHA
[2018-07-17 07:00] VITALS: BP 138/75
[2018-07-17] MEDS: INSULIN LISPRO 300 UNITS/3 ML INSULN.PEN. SQ SCH ×4 (07:30→21:00)
[2018-07-17] MEDS: GEMFIBROZIL 600 MG TABLET. PO SCH ×2 (08:37→20:44)
[2018-07-17] MEDS: LACTOBACILLUS RHAMNOSUS GG 1 CAPSULE. PO SCH ×2 (08:37→20:44)
[2018-07-17] MEDS: MULTIVITAMIN with MINERAL TABLET. PO SCH (08:37)
[2018-07-17] MEDS: glipiZIDE 5 MG TABLET PO SCH ×2 (08:37→16:30)
[2018-07-17] MEDS: PIOGLITAZONE 15 MG TABLET. PO SCH (08:37)
[2018-07-17] MEDS: FERROUS SULFATE 325 MG TABLET. PO SCH (08:37)
[2018-07-17] MEDS: ASPIRIN CHEWABLE 81 MG TABLET. PO SCH (08:37)
[2018-07-17 11:00] VITALS: BP 113/62
--- NOTE | 2018-07-17 11:00 | PDOC ---
Infectious Disease Note Subjective Subjective Feeling pretty good No complaints or concerns Still having little bit of diarrhea Denies N/V/cramps/F/C ROS ROS per HPI Vital Sign Vital Signs Vital Signs Date Time Temp Pulse Resp B/P (MAP) Pulse Ox O2 Delivery O2 Flow Rate FiO2 07/17/18 07:00 97.4 72 18 138/75 (96) 97 Room Air 97.4 Physical Exam PHYSICAL EXAM GENERAL: Sleeping, arouses to name HEENT: Oral cavity, pharynx is clear. LUNGS: Decreased in the bases. HEART: S1, S2. ABDOMEN: Soft, nontender and nondistended, positive bowel sounds. EXTREMITIES: Without clubbing or cyanosis. Right foot bandaged with wound vac in place. SKIN: No rash NEUROLOGIC: Responds appropriately RUE PICC clean Labs Lab Laboratory Tests Test 07/16/18 11:00 07/16/18 16:40 07/16/18 21:07 07/17/18 04:40 Glucose (Fingerstick) 106 mg/dL (70-99) 126 mg/dL (70-99) 116 mg/dL (70-99) Vancomycin Level Trough 14.0 mcg/mL (10.0-20.0) Vancomycin Last Dose Date 07/16/18 Vancomycin Last Dose Time 1700 Test 07/17/18 07:42 Glucose (Fingerstick) 119 mg/dL (70-99) Micro AEROBIC RES 1 Final Enterococcus faecalis AEROBIC RES 2 Final Mixed skin anna MICS are expressed in micrograms per mL Antibiotic RSLT#1 Penicillin S =2 Vancomycin S =1 AEROBIC RES 1 Preliminary Streptococcus species GRAM STAIN RES 3 Final Comment Few gram negative rods. Objective Assessment S/p open Amputation of the right great toe including the first metatarsal head 07/14.- infection. ESR 125, E. faecalis (amp-S), strep and GNR so far Leukocytosis - better DM Sulfa - allergy - was not effective 10 years ago - denies Rash/SOA/Swelling/Renal failure - etc H/o MRSA - recent screen neg Plan Plan of Care Vanc and Zosyn Trough 14.0 f/u final culture results am labs PICC maintenance care Attending Co-Sign The patient was seen and interviewed as well as examined at the bedside. The chart was reviewed. The case was discussed. Agree with the plan of care. NADEEN WRAY [employer]ICAL SALES REPRESENTATIVE Jul 17, 2018 11:00 GISSELLE FIGUEROA MD Jul 17, 2018 13:34
--- NOTE | 2018-07-17 11:55 | NUR ---
Zosyn: 0600 not given on time as vanco was running. Started dose at 1140. Spoke with Lillie in pharmacy regarding dosing, she stated to non-admin noon dose and hang next scheduled at the time it is due.
--- NOTE | 2018-07-17 12:10 | PDOC ---
PROGRESS NOTES Subjective Subjective Patient without complaint. Objective Objective Vital Signs Date Time Temp Pulse Resp B/P (MAP) Pulse Ox O2 Delivery O2 Flow Rate FiO2 07/17/18 07:00 97.4 72 18 138/75 (96) 97 Room Air 97.4 07/15/18 16:46 8.0 Intake and Output 07/17/18 07:00 Intake Total 1410 ml Output Total 600 ml Balance 810 ml Intake Oral 1360 ml IV Total 50 ml Output Urine Total 600 ml # Voids 4 # Bowel Movements 1 Physical Exam Abdomen: Normal bowel sounds, Soft, No tenderness Heart: Regular rate Extremities: No edema, Other (wound vac and dressing in place R foot) General: Alert, Oriented X3, No acute distress Lungs: Clear to auscultation Assessment Assessment Problems Medical Problems: (1) Cellulitis of right foot Status: Acute (2) Diabetic foot ulcer Status: Acute (3) Sepsis Status: Acute Plan Plan of Care 1. Osteomyelitis R foot, POD #3 great toe amputation - stable. Wound culture with mixed anna, await final results. Continue Zosyn and Vancomycin per ID. Anticipate transfer to half-way soon to continue tx there. 2. DM2 - controlled, continue present medication. Comment Review of Relevant I have reviewed the following items dudley (where applicable) has been applied. Labs Laboratory Tests Test 07/15/18 16:20 07/15/18 20:57 07/16/18 07:26 07/16/18 11:00 Glucose (Fingerstick) 104 mg/dL (70-99) 90 mg/dL (70-99) 111 mg/dL (70-99) 106 mg/dL (70-99) Test 07/16/18 16:40 07/16/18 21:07 07/17/18 04:40 07/17/18 07:42 Glucose (Fingerstick) 126 mg/dL (70-99) 116 mg/dL (70-99) 119 mg/dL (70-99) Vancomycin Level Trough 14.0 mcg/mL (10.0-20.0) Vancomycin Last Dose Date 07/16/18 Vancomycin Last Dose Time 1700 Test 07/17/18 11:45 Glucose (Fingerstick) 158 mg/dL (70-99) Laboratory Tests Test 07/16/18 16:40 07/16/18 21:07 07/17/18 04:40 07/17/18 07:42 Glucose (Fingerstick) 126 mg/dL (70-99) 116 mg/dL (70-99) 119 mg/dL (70-99) Vancomycin Level Trough 14.0 mcg/mL (10.0-20.0) Vancomycin Last Dose Date 07/16/18 Vancomycin Last Dose Time 1700 Test 07/17/18 11:45 Glucose (Fingerstick) 158 mg/dL (70-99) Microbiology 07/12/18 Blood Culture - Preliminary, Resulted NO GROWTH AFTER 4 DAYS 07/14/18 Anaerobic/Aerobic Culture, Resulted Pending 07/14/18 Anaerobic Culture Result 1 (MARIANN), Resulted Pending 07/14/18 Aerobic Culture - Preliminary, Resulted 07/14/18 Aerobic Culture Result 1 (MARIANN) - Preliminary, Resulted 07/14/18 Gram Stain - Final, Resulted 07/14/18 Gram Stain Result 1 (MARIANN) - Final, Resulted 07/14/18 Gram Stain Result 2 (MARIANN) - Final, Resulted Medications Current Medications Vancomycin HCl (Vanco Per Pharmacy) 1 each 1X STAT MC ; Start 07/12/18 at 16:32; Stop 07/12/18 at 16:42; Status DC Piperacillin Sod/ Tazobactam Sod 3.375 gm/Sodium Chloride 50 ml @ 100 mls/hr 1X ONCE IV Last administered on 07/12/18at 17:51; Start 07/12/18 at 16:45; Stop 07/12/18 at 17:14; Status DC Vancomycin HCl 2 gm/Sodium Chloride 500 ml @ 250 mls/hr 1X ONCE IV Last administered on 07/12/18at 19:39; Start 07/12/18 at 16:45; Stop 07/12/18 at 18:44; Status DC Sodium Chloride 1,000 ml @ 1,000 mls/hr 1X ONCE IV Last administered on 07/12/18at 17:51; Start 07/12/18 at 17:15; Stop 07/12/18 at 18:14; Status DC Aspirin (Children'S Aspirin) 81 mg DAILY PO Last administered on 07/17/18at 08:37; Start 07/13/18 at 09:00 Atorvastatin Calcium (Lipitor) 20 mg HS PO Last administered on 07/16/18at 21:27; Start 07/12/18 at 21:00 Ferrous Sulfate (Feosol) 325 mg DAILY PO Last administered on 07/17/18 08:37; Start 07/13/18 at 09:00 Gemfibrozil (Lopid) 600 mg BID PO Last administered on 07/17/18 08:37; Start 07/12/18 at 21:00 Acetaminophen/ Hydrocodone Bitart (Lortab 5/325) 1 tab PRN Q6HRS PRN PO PAIN Last administered on 07/15/18 12:28; Start 07/12/18 at 20:00 Metformin HCl (Glucophage) 1,000 mg BIDWMEALS PO Last administered on 07/13/18 17:33; Start 07/13/18 at 08:00; Stop 07/14/18 at 07:03; Status DC Multivitamins (Thera M Plus) 1 tab DAILY PO Last administered on 07/17/18 08:37; Start 07/13/18 at 09:00 Pioglitazone HCl (Actos) 15 mg DAILY PO Last administered on 07/17/18 08:37; Start 07/13/18 at 09:00 Insulin Human Lispro (HumaLOG) 0-5 UNITS QIDACHS SQ Last administered on 07/17/18 11:48; Start 07/12/18 at 21:00 Dextrose (Dextrose 50%-Water Syringe) 12.5 gm PRN Q15MIN PRN IV SEE COMMENTS; Start 07/12/18 at 20:15 Piperacillin Sod/ Tazobactam Sod (Zosyn Per Pharmacy) 1 each PRN DAILY PRN MC SEE COMMENTS Last administered on 07/15/18 04:36; Start 07/12/18 at 20:15 Piperacillin Sod/ Tazobactam Sod 3.375 gm/Sodium Chloride 50 ml @ 100 mls/hr Q6HRS IV Last administered on 07/17/18 11:41; Start 07/13/18 at 00:00 Vancomycin HCl (Vanco Per Pharmacy) 1 each PRN DAILY PRN MC SEE COMMENTS Last administered on 07/17/18 06:32; Start 07/13/18 at 15:15 Vancomycin HCl 1.25 gm/Sodium Chloride 250 ml @ 167 mls/hr Q12H IV Last administered on 07/14/18 16:56; Start 07/13/18 at 15:30; Stop 07/15/18 at 04:26; Status DC Vancomycin HCl (Vancomycin Trough Level) 1 each 1X ONCE MC Last administered on 07/15/18at 03:00; Start 07/15/18 at 03:00; Stop 07/15/18 at 03:01; Status DC Gadobutrol (Gadavist) 7.5 mmol 1X ONCE IV Last administered on 07/13/18at 15:50; Start 07/13/18 at 15:30; Stop 07/13/18 at 15:31; Status DC Ondansetron HCl (Zofran) 4 mg PRN Q6HRS PRN IV NAUSEA/VOMITING; Start 07/14/18 at 07:00; Stop 07/14/18 at 20:00; Status DC Fentanyl Citrate (Fentanyl 2ml Vial) 25 mcg PRN Q5MIN PRN IV MILD PAIN; Start 07/14/18 at 07:00; Stop 07/14/18 at 20:00; Status DC Fentanyl Citrate (Fentanyl 2ml Vial) 50 mcg PRN Q5MIN PRN IV MODERATE TO SEVERE PAIN; Start 07/14/18 at 07:00; Stop 07/14/18 at 20:00; Status DC Morphine Sulfate (Morphine Sulfate) 1 mg PRN Q10MIN PRN IV SEVERE PAIN; Start 07/14/18 at 07:00; Stop 07/14/18 at 20:00; Status DC Ringer's Solution 1,000 ml @ 30 mls/hr Q24H IV Last administered on 07/14/18at 07:00; Start 07/14/18 at 07:00; Stop 07/14/18 at 18:59; Status DC Lidocaine HCl (Xylocaine-Mpf 1% 2ml Vial) 2 ml PRN 1X PRN ID PRIOR TO IV START; Start 07/14/18 at 07:00; Stop 07/14/18 at 20:00; Status DC Hydromorphone HCl (Dilaudid) 0.5 mg PRN Q10MIN PRN IV SEV PAIN, Second choice; Start 07/14/18 at 07:00; Stop 07/14/18 at 20:00; Status DC Prochlorperazine Edisylate (Compazine) 5 mg PACU PRN PRN IV NAUSEA, MRX1; Start 07/14/18 at 07:00; Stop 07/14/18 at 20:00; Status DC Vancomycin HCl 1 gm/Sodium Chloride 250 ml @ 250 mls/hr 1X STAT IV ; Start 07/13/18 at 17:09; Stop 07/13/18 at 18:08; Status UNV Piperacillin Sod/ Tazobactam Sod 3.375 gm/Sodium Chloride 50 ml @ 100 mls/hr 1X STAT IV ; Start 07/13/18 at 17:09; Stop 07/13/18 at 17:38; Status UNV Sodium Chloride 1,000 ml @ 100 mls/hr Q10H IV ; Start 07/13/18 at 18:00; Stop 07/13/18 at 18:00; Status DC Cefazolin Sodium 1 gm/Sodium Chloride 500 ml @ 500 mls/hr 1X ONCE IRR Last administered on 07/14/18at 07:30; Start 07/14/18 at 07:30; Stop 07/14/18 at 08:29; Status DC Glipizide (Glucotrol) 5 mg BIDBFRMEAL PO Last administered on 07/17/18at 08:37; Start 07/14/18 at 07:30 Propofol 20 ml @ As Directed STK-MED ONCE IV ; Start 07/14/18 at 07:02; Stop at 07:03; Status DC Famotidine (Pepcid Vial) 20 mg STK-MED ONCE .ROUTE ; Start 07/14/18 at 07:02; Stop 07/14/18 at 07:03; Status DC Lidocaine HCl (Lidocaine Pf 2% Vial) 5 ml STK-MED ONCE .ROUTE ; Start 07/14/18 at 07:02; Stop 07/14/18 at 07:03; Status DC Ondansetron HCl (Zofran) 4 mg STK-MED ONCE .ROUTE ; Start 07/14/18 at 07:02; Stop 07/14/18 at 07:03; Status DC Fentanyl Citrate (Fentanyl 2ml Vial) 100 mcg STK-MED ONCE .ROUTE ; Start 07/14/18 at 07:03; Stop 07/14/18 at 07:04; Status DC Midazolam HCl (Versed) 2 mg STK-MED ONCE .ROUTE ; Start 07/14/18 at 07:03; Stop 07/14/18 at 07:04; Status DC Dexamethasone Sodium Phosphate (Decadron) 4 mg STK-MED ONCE .ROUTE ; Start 07/14/18 at 07:04; Stop 07/14/18 at 07:05; Status DC Sevoflurane (Ultane) 30 ml STK-MED ONCE IH ; Start 07/14/18 at 08:15; Stop 07/14/18 at 08:16; Status DC Lactobacillus Rhamnosus (Culturelle) 1 cap BID PO Last administered on 07/17/18at 08:37; Start 07/14/18 at 21:00 Vancomycin HCl 1.5 gm/Sodium Chloride 500 ml @ 250 mls/hr Q12H IV Last administered on 07/17/18at 06:32; Start 07/15/18 at 05:00 Vancomycin HCl (Vancomycin Trough Level) 1 each 1X ONCE MC Last administered on 07/17/18at 04:52; Start 07/17/18 at 04:30; Stop 07/17/18 at 04:31; Status DC Alteplase, Recombinant (Cathflo For Central Catheter Clearance) 1 mg 1X ONCE INT CAT Last administered on 07/17/18at 05:12; Start 07/17/18 at 05:30; Stop 07/17/18 at 05:31; Status DC Active Scripts Active Reported Urinozinc Prostate Formula Cap (Multivits-Min/Hrb [id number]) 1 Each Capsule 1 Each PO DAILY Amoxicillin 500 Mg Capsule 500 Mg PO QID PRN Amox Tr-K Clv 875-125 Mg Tab (Amoxicillin/Potassium Clav) 1 Each Tablet 1 Tab PO BID Multi Vitamin Daily (Multivitamin) 1 Each Tablet 1 Each PO Hydrocodone-Apap 5-325 (Hydrocodone Bit/Acetaminophen) 1 Each Tablet 1 Tab PO PRN Q6HRS PRN Atorvastatin Calcium 20 Mg Tablet 20 Mg PO HS Ferrous Sulfate 325 Mg Tablet 1 Tab PO DAILY Aspirin 81 Mg Tab.chew 81 Mg PO Pioglitazone Hcl 15 Mg Tablet 15 Mg PO DAILY Gemfibrozil 600 Mg Tablet 600 Mg PO BID Metformin Hcl 1,000 Mg Tablet 1 Tab PO BID Vitals/I & O Vital Sign - Last 24 Hours 07/16/18 07/16/18 07/16/18 07/16/18 15:00 19:00 20:00 23:00 Temp 98.2 98.1 97.9 98.2 98.1 97.9 Pulse 72 72 69 Resp 18 20 20 B/P (MAP) 125/73 (90) 117/70 (86) 162/80 (107) Pulse Ox 97 95 98 O2 Delivery Room Air Room Air Room Air Room Air 07/17/18 07/17/18 03:00 07:00 Temp 97.8 97.4 97.8 97.4 Pulse 68 72 Resp 20 18 B/P (MAP) 108/61 (77) 138/75 (96) Pulse Ox 94 97 O2 Delivery Room Air Room Air Intake and Output 07/16/18 07/16/18 07/17/18 15:00 23:00 07:00 Intake Total 500 ml 540 ml 370 ml Output Total 250 ml 350 ml Balance 250 ml 190 ml 370 ml RAKESH RITCHIE MD Jul 17, 2018 12:10
[2018-07-17 15:00] VITALS: BP 113/70
[2018-07-17 19:00] VITALS: BP 118/59
[2018-07-17] MEDS: ATORVASTATIN CALCIUM 20 MG TABLET PO SCH (20:44)
[2018-07-17 23:00] VITALS: BP 126/71
[2018-07-18] MEDS: PIPERACILLIN/TAZOBACTAM 3.375 GM in IV NORMAL SALINE 50ML 50 ML IV SCH ×3 (00:07→12:26)
[2018-07-18 03:00] VITALS: BP 123/66
[2018-07-18] MEDS: VANCOMYCIN 1.5 GM in IV NORMAL SALINE 500ML BAG 500 ML IV SCH (05:34)
[2018-07-18 05:54] LABS: BASO # 0.1 x10^3/uL (0.0-0.2); BASO % 1 % (0-3); EOS # 0.3 x10^3/uL (0.0-0.7); EOS % 3 % (0-3); HEMATOCRIT 30.4 % (39.0-53.0); HEMOGLOBIN 10.1 g/dL (13.0-17.5); LYMPH % 24 % (24-48); MEAN CORPUSCULAR HEMOGLOBIN 29 pg (25-35); MEAN CORPUSCULAR HGB CONC 33 g/dL (31-37); MEAN CORPUSCULAR VOLUME 88 fL (79-100); MONO # 0.6 x10^3/uL (0.0-1.1); MONO % 7 % (0-9); NEUT # 5.6 x10^3uL (1.8-7.7); NEUT % 65 % (31-73); PLATELET COUNT 415 x10^3/uL (140-400); RED BLOOD COUNT 3.46 x10^6/uL (4.30-5.70); RED CELL DISTRIBUTION WIDTH 13.9 % (11.5-14.5); WHITE BLOOD COUNT 8.5 x10^3/uL (4.0-11.0)
[2018-07-18 06:09] LABS: CALCIUM 9.1 mg/dL (8.5-10.1); CREATININE 0.7 mg/dL (0.7-1.3); GFR 113.9
[2018-07-18 07:00] VITALS: BP 117/65
[2018-07-18] MEDS ORDERED: VANC1VIA3 MC (07:32)
[2018-07-18] MEDS ORDERED: GLIP5TAB10 PO (07:32)
[2018-07-18] MEDS ORDERED: PIPE2.255 MC (07:32)
--- NOTE | 2018-07-18 07:35 | SNU/HH DC ---
DISCHARGE ORDERS DISCHARGE INFORMATION: DISCHARGE DATE: Jul 18, 2018 FINAL DIAGNOSIS Problems Medical Problems: (1) Cellulitis of right foot Status: Acute (2) Diabetic foot ulcer Status: Acute (3) Sepsis Status: Acute CONDITION ON DISCHARGE: Stable CODE STATUS: Code Status: Full DETENTION: SNF STAY <30 DAYS: Yes HOSPICE: HOSPICE: No HOSPICE EVAL & TREAT: No LTAC: ADMIT TO LTAC: No POST DISCHARGE ORDERS: ACTIVITY ORDERS: Activity as tolerated WEIGHT BEARING STATUS: As tolerated DIET AFTER DISCHARGE: ADA WOUND/INCISION CARE: Keep wound/cast CDI OTHER ORDERS: PT TO ONLY BE ON ZOSYN, NO VANCOMYCIN FOR 2-6WK CHECKS AFTER DISCHARGE: CHECKS AFTER DISCHARGE: Check blood press - daily, Check blood sugar, ac/hs, Check your Temp as needed, Weigh Yourself Daily FOLLOW-UP: PHYSICIAN FOLLOW-UP: Follow up with Dr. Batista within 1-2 weeks of D/C ADDITIONAL FOLLOW-UP: Follow up with Infectious Disease in 2 weeks. TREATMENT/EQUIPMENT ORDERS: ADAPTIVE EQUIPMENT NEEDED: None INFUSION EQUIPMENT NEEDED: PICC Line Physical Therapy For: Evalulation/Treatment Occupational Therapy For: Evaluation/Treatment DISCHARGE MEDICATIONS: Home Meds Active Scripts Glipizide (GLIPIZIDE) 5 Mg Tablet, 5 MG PO DAILY for DM2 for 30 Days, #30 TAB Prov:STEVE BATISTA MD 07/18/18 Reported Medications Zwxbzuvgfcpk-Wkho-Ryhnxrig,Iso (ZOSYN 3.375 GM PRE MIX-BAG) 3.375 Gm/50 Ml Froz.piggy, 3.375 GM IV Q6HRS for diabetic foot ulcer, EACH 07/18/18 Multivits-Min/Hrb Cb121 (URINOZINC PROSTATE FORMULA CAP) 1 Each Capsule, 1 EACH PO DAILY for "prostate", CAP 07/12/18 Multivitamin (MULTI VITAMIN DAILY) 1 Each Tablet, 1 EACH PO 03/04/16 Hydrocodone Bit/Acetaminophen (HYDROCODONE-APAP 5-325 ) 1 Each Tablet, 1 TAB PO PRN Q6HRS PRN for PAIN, TAB 0 Refills 03/04/16 Atorvastatin Calcium (ATORVASTATIN CALCIUM) 20 Mg Tablet, 20 MG PO HS for FOR CHOLESTEROL, #30 TAB 0 Refills 03/04/16 Ferrous Sulfate (FERROUS SULFATE) 325 Mg Tablet, 1 TAB PO DAILY, #30 TAB 3 Refills 03/04/16 Aspirin (ASPIRIN) 81 Mg Tab.chew, 81 MG PO, TAB.CHEW 03/04/16 Pioglitazone Hcl (PIOGLITAZONE HCL) 15 Mg Tablet, 15 MG PO DAILY, TAB 03/04/16 Gemfibrozil (GEMFIBROZIL) 600 Mg Tablet, 600 MG PO BID, TAB 03/04/16 Metformin Hcl (METFORMIN HCL) 1,000 Mg Tablet, 1 TAB PO BID, #60 TAB 5 Refills 03/04/16 Discontinued Reported Medications Amoxicillin (AMOXICILLIN) 500 Mg Capsule, 500 MG PO QID PRN for SEE COMMENTS, CAP 0 Refills 03/13/16 Amoxicillin/Potassium Clav (AMOX TR-K CLV 875-125 MG TAB) 1 Each Tablet, 1 TAB PO BID, #20 TAB 03/13/16 STEVE BATISTA MD Jul 18, 2018 07:35
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
[2018-07-18] MEDS: INSULIN LISPRO 300 UNITS/3 ML INSULN.PEN. SQ SCH ×2 (08:54→11:27)
[2018-07-18] MEDS: LACTOBACILLUS RHAMNOSUS GG 1 CAPSULE. PO SCH (08:55)
[2018-07-18] MEDS: glipiZIDE 5 MG TABLET PO SCH (08:55)
[2018-07-18] MEDS: ASPIRIN CHEWABLE 81 MG TABLET. PO SCH (08:55)
[2018-07-18] MEDS: PIOGLITAZONE 15 MG TABLET. PO SCH (08:55)
[2018-07-18] MEDS: FERROUS SULFATE 325 MG TABLET. PO SCH (08:56)
[2018-07-18] MEDS: MULTIVITAMIN with MINERAL TABLET. PO SCH (08:56)
[2018-07-18] MEDS: GEMFIBROZIL 600 MG TABLET. PO SCH (08:56)
[2018-07-18] MEDS: HYDROcodone/APAP 5/325MG 1 TAB TABLET PO PRN (09:12)
--- NOTE | 2018-07-18 09:30 | NUR ---
Wound Care Pt seen for wound care follow up and wound vac dressing change to R foot open amputation. RERE Maravilla with Vascular at bedside to assess as well as Dr Radhika FOSTER. R foot dressing removed, wound cleaned, measured and photographed for discharge. Wound bed is clean, minimal bone exposed, peripheral redness and swelling are resolving. Ostomy ring applied to periwound, bhaskar placed in tunnel, and 1 piece of black foam placed into wound bed, track pad placed on R lateral lower leg. The fluctuant area noted on medial mid/hindfoot with periwound redness/purplish coloring in this area have not changed, Renita not overly concerned with appearance, stated it is probably just fluid that will reabsorb, no s/s of infection at this time. Vac exchanged for hospital vac as pt is discharging today to . Pt will f/u in [facility] on Wednesday for next dressing change. No other wounds noted at this time. POC discussed with Lisbeth SUE.
--- NOTE | 2018-07-18 09:32 | PDOC ---
Infectious Disease Note Subjective Subjective Feeling pretty good No complaints or concerns Still having little bit of diarrhea Denies N/V/cramps/F/C ROS ROS no n/v/d/ Vital Sign Vital Signs Vital Signs Date Time Temp Pulse Resp B/P (MAP) Pulse Ox O2 Delivery O2 Flow Rate FiO2 07/18/18 09:12 20 96 Room Air 07/18/18 07:00 97.4 65 117/65 (82) 97.4 Physical Exam PHYSICAL EXAM GENERAL: Sleeping, arouses to name HEENT: Oral cavity, pharynx is clear. LUNGS: Decreased in the bases. HEART: S1, S2. ABDOMEN: Soft, nontender and nondistended, positive bowel sounds. EXTREMITIES: Without clubbing or cyanosis. Right foot bandaged with wound vac in place. wound seen, clean, healthy, bone exposed SKIN: No rash NEUROLOGIC: Responds appropriately RUE PICC clean Labs Lab Laboratory Tests Test 07/17/18 11:45 07/17/18 16:42 07/17/18 20:45 07/18/18 05:30 Glucose (Fingerstick) 158 mg/dL (70-99) 85 mg/dL (70-99) 159 mg/dL (70-99) White Blood Count 8.5 x10^3/uL (4.0-11.0) Red Blood Count 3.46 x10^6/uL (4.30-5.70) Hemoglobin 10.1 g/dL (13.0-17.5) Hematocrit 30.4 % (39.0-53.0) Mean Corpuscular Volume 88 fL (79-100) Mean Corpuscular Hemoglobin 29 pg (25-35) Mean Corpuscular Hemoglobin Concent 33 g/dL (31-37) Red Cell Distribution Width 13.9 % (11.5-14.5) Platelet Count 415 x10^3/uL (140-400) Neutrophils (%) (Auto) 65 % (31-73) Lymphocytes (%) (Auto) 24 % (24-48) Monocytes (%) (Auto) 7 % (0-9) Eosinophils (%) (Auto) 3 % (0-3) Basophils (%) (Auto) 1 % (0-3) Neutrophils # (Auto) 5.6 x10^3uL (1.8-7.7) Lymphocytes # (Auto) 2.0 x10^3/uL (1.0-4.8) Monocytes # (Auto) 0.6 x10^3/uL (0.0-1.1) Eosinophils # (Auto) 0.3 x10^3/uL (0.0-0.7) Basophils # (Auto) 0.1 x10^3/uL (0.0-0.2) Sodium Level 141 mmol/L (136-145) Potassium Level 4.0 mmol/L (3.5-5.1) Chloride Level 106 mmol/L (98-107) Carbon Dioxide Level 26 mmol/L (21-32) Anion Gap 9 (6-14) Blood Urea Nitrogen 18 mg/dL (8-26) Creatinine 0.7 mg/dL (0.7-1.3) Estimated GFR (Cockcroft-Gault) 113.9 Glucose Level 144 mg/dL (70-99) Calcium Level 9.1 mg/dL (8.5-10.1) Test 07/18/18 06:33 Glucose (Fingerstick) 115 mg/dL (70-99) Micro Microbiology 07/12/18 Blood Culture - Final, Complete NO GROWTH AFTER 5 DAYS 07/14/18 Anaerobic/Aerobic Culture, Resulted Pending 07/14/18 Anaerobic Culture Result 1 (MARIANN), Resulted Pending 07/14/18 Aerobic Culture - Final, Resulted 07/14/18 Aerobic Culture Result 1 (MARIANN) - Final, Resulted 07/14/18 Gram Stain - Final, Resulted 07/14/18 Gram Stain Result 1 (MARIANN) - Final, Resulted 07/14/18 Gram Stain Result 2 (MARIANN) - Final, Resulted Objective Assessment S/p open Amputation of the right great toe including the first metatarsal head 07/14.- infection. ESR 125, E. faecalis (amp-S), strep and GNR so far Leukocytosis - better DM Sulfa - allergy - was not effective 10 years ago - denies Rash/SOA/Swelling/Renal failure - etc H/o MRSA - recent screen neg Plan Plan of Care d/cVanc and cont Zosyn Trough 14.0 f/u final culture results am labs PICC maintenance care f/u with us in 2 wks wkly cbc, bun/cr, sed rate GISSELLE FIGUEROA MD Jul 18, 2018 09:32
--- NOTE | 2018-07-18 10:21 | PDOC ---
Provider Note Provider Note S: POD#4 of Amputation of the right great toe including the first metatarsal head. Pt doing well without complaints. Pain controlled. Has not ambulated yet, challenging with other problems like foot drop and inability to flex right knee. O: VSS, afebrile Alert, no apparent distress Respirations nonlabored Good right PT pulse. Right foot with scattered deep erythematous macules along medial foot and lateral dorsal foot and ankle - this has improved over the weekend, does not resemble cellulitis. No cellulitis noted. Right toe wound with good granulation tissue throughout, minimal small areas of slough, bone exposed. No active bleeding. No signs of overt infection. A/P: POD#4 of Amputation of the right great toe including the first metatarsal head. - pt doing well, pain controlled - Ok for pt to dc once medically stable - to continue vac therapy, weekly [facility] follow ups and abx per ID. -Spoke with PT, working on getting shoe to help patient (he cannot use forefoot offloading due to foot drop) Remain right forefoot offloading to optimize wound healing. SHANNA CARTER Jul 18, 2018 10:21
--- NOTE | 2018-07-18 10:23 | NUR ---
SW following pt. Pt now agreeable with SNU at [facility]. ALEX phoned and faxed referral/Rx for IV abx to [facility]. Pt acceptance and admission pending. JUVE RN and ID.
[2018-07-18 10:55] VITALS: BP 131/73
[2018-07-18] MEDS ORDERED: PIPE3.377 IV (11:03)
--- NOTE | 2018-07-18 14:22 | NUR ---
SW following pt. Pt has been accepted at [facility]. SW phoned and faxed orders to [facility] and packet on chart. Pt will transport via central transport at 1515. Pt's choice and rights forms verbally consented by pt and copies on chart. RN notified.
--- NOTE | 2018-07-18 16:27 | NUR ---
Report called to receiving nurse Nancy at [facility]. Pt dismissed to [facility] per [facility] w/c van at 1532 with all belongings. Transfer orders sent with regional owner operator truck driver.
--- NOTE | 2018-07-18 17:06 | PATHOLOGY ---
[facility] Accession Number: [id number] . 01 Material submitted: . toe - RIGHT 1ST TOE. Modifiers: right, first . 01 Clinical history: . Infection . 02 Diagnosis: Right first toe amputation: - Acute cellulitis and acute osteomyelitis. (JPM:restaurant area manager; 07/18/2018) MBR/07/18/2018 . 02 Electronically signed: . Henri Gaines MD, Pathologist NPI- [id number] . 01 Gross description: . The specimen is received in formalin, labeled "Andrey Hoskins, first toe" and consists of a disarticulated toe measuring 9.3 x 3.5 x 3.5 cm. A thickened yellow-ahn nail is present. The skin is pink-ahn and flaky on the dorsal aspect which grossly abuts the skin soft tissue margin (inked black). The proximal bone margin is a smooth concave articular surface. Sectioning reveals soft necrotic pink-brown cut surfaces which grossly approaches the proximal bone margin. Student Truck Driver sections are submitted as follows: . A1: Skin soft tissue margin, perpendicular sections A2: Toe, longitudinal section proximal A3: Toe, longitudinal section mid (blue ink on proximal aspect) A4: Toe, longitudinal section distal A2-A4 will be submitted following decalcification. (SDY; 07/15/2018) SYU/SYU . 02 Pathologist provided ICD-10: L03.90, M86.171 . 02 CPT . 552017, 567787 Specimen Comment: A courtesy copy of this report has been sent to Specimen Comment: [phone], , . Specimen Comment: Report sent to ,DR ESTRELLA / DR BATISTA Performed at: 01 [facility] [id number] [facility] [address], [place], [place] [id number] MD Jorge Amor MD Phone: [phone] Performed at: 02 [facility] [address] [place], [place] [id number] MD Henri Gaines MD Phone: [phone]
== END 2018-07-18 15:32 | DRG 854 ==
LOC: ER 15:03 → 5 NORTH 17:20
PROVIDERS: ADMIT Family Medicine; ATTEND Family Medicine
PROC: 02HV33Z Insertion of Infusion Device into Superior Vena Cava, Percutaneous Approach (ICD-10-PCS; 2018-07-14)
PROC: B548ZZA Ultrasonography of Superior Vena Cava, Guidance (ICD-10-PCS; 2018-07-14)
PROC: 0Y6P0Z0 Detachment at Right 1st Toe, Complete, Open Approach (ICD-10-PCS; principal; 2018-07-14 07:30)
DX: A41.9 Sepsis, unspecified organism (principal); L03.115 Cellulitis of right lower limb; E87.1 Hypo-osmolality and hyponatremia; M86.8X7 Other osteomyelitis, ankle and foot; E44.1 Mild protein-calorie malnutrition; M00.9 Pyogenic arthritis, unspecified; L02.611 Cutaneous abscess of right foot; E11.621 Type 2 diabetes mellitus with foot ulcer; L97.519 Non-pressure chronic ulcer of other part of right foot with unspecified severity; E11.51 Type 2 diabetes mellitus with diabetic peripheral angiopathy without gangrene; D64.9 Anemia, unspecified; B95.2 Enterococcus as the cause of diseases classified elsewhere; B95.5 Unspecified streptococcus as the cause of diseases classified elsewhere; E11.41 Type 2 diabetes mellitus with diabetic mononeuropathy; D47.3 Essential (hemorrhagic) thrombocythemia; E11.69 Type 2 diabetes mellitus with other specified complication; E78.00 Pure hypercholesterolemia, unspecified; E78.5 Hyperlipidemia, unspecified; M21.371 Foot drop, right foot; M21.372 Foot drop, left foot; M65.9 Synovitis and tenosynovitis, unspecified; Z96.659 Presence of unspecified artificial knee joint; Z91.040 Latex allergy status; Z79.84 Long term (current) use of oral hypoglycemic drugs; Z86.14 Personal history of Methicillin resistant Staphylococcus aureus infection; Z88.2 Allergy status to sulfonamides; Z79.4 Long term (current) use of insulin; Z68.25 Body mass index [BMI] 25.0-25.9, adult; Z80.1 Family history of malignant neoplasm of trachea, bronchus and lung; Z80.3 Family history of malignant neoplasm of breast; Z82.49 Family history of ischemic heart disease and other diseases of the circulatory system
CPT/HCPCS: 36415; 36569; 71045; 73630; 73720; 80048; 80053; 80202; 82962; 83036; 83605; 85025; 85610; 85651; 87040; 87071; 87075; 87186; 87641; 88305; 88311; 93926; A7015; A9585; J0690; J1100; J1815; J2001; J2250; J2405; J2543; J2704; J3010; J3370; J3490; J7030; J7040; J7050; J7120; 97116; 97530; 99285-25; A4461